=== PATIENT | male | born 1960 | race Caucasian/White ===

== ENCOUNTER → 2017-06-05 | Outpatient (CLI) | payer OTHER ==
[2017-06-05 12:38] LABS: ABSOLUTE BASOPHILS # (AUTO) 0.1 10^3/uL (0.0-0.2); ABSOLUTE EOSINOPHILS # (AUTO) 0.2 10^3/uL (0.0-0.6); ABSOLUTE LYMPHOCYTES (AUTO) 1.7 10^3/uL (0.5-4.7); ABSOLUTE MONOCYTES (AUTO) 0.4 10^3/uL (0.1-1.4); ABSOLUTE NEUT (AUTO) 6.5 10^3/uL (1.7-8.2); BASOPHILS % (AUTO) 0.6 % (0-2); EOSINOPHILS % (AUTO) 2.3 % (0-6); LYMPHOCYTES % (AUTO) 19.4 % (13-45); MEAN CORPUSCULAR HEMOGLOBIN 29.4 pg (27.0-33.4); MEAN CORPUSCULAR VOLUME 87 fl (80-97); MONOCYTES % (AUTO) 4.7 % (3-13); RED BLOOD COUNT 5.78 10^6/uL (4.35-5.55); RED CELL DISTRIBUTION WIDTH 13.6 % (11.5-14.0); WHITE BLOOD COUNT 8.9 10^3/uL (4.0-10.5)
[2017-06-05 13:01] LABS: ALANINE AMINOTRANSFERASE 78 U/L (21-72); ALBUMIN 4.5 g/dL (3.5-5.0); ALKALINE PHOSPHATASE 86 U/L (38-126); ANION GAP 13 (5-19); ASPARTATE AMINO TRANSFERASE 66 U/L (17-59); BILIRUBIN,DIRECT 0.4 mg/dL (0.0-0.4); BLOOD UREA NITROGEN 15 mg/dL (7-20); CALCIUM 10.1 mg/dL (8.4-10.2); CARBON DIOXIDE 25 mmol/L (22-30); CHLORIDE 101 mmol/L (98-107); CHOLESTEROL 222.49 mg/dL (0-200); CREATININE RESULT 0.72 mg/dL (0.52-1.25); Direct HDL 31 mg/dL (>40); GLUCOSE 265 mg/dL (75-110); POTASSIUM 4.7 mmol/L (3.6-5.0); SODIUM 138.5 mmol/L (137-145); TOTAL PROTEIN 7.4 g/dL (6.3-8.2); TRIGLYCERIDES 241 mg/dL (<150)
[2017-06-05 13:13] LABS: DIRECT LDL 170 mg/dL (<100)
[2017-06-05 13:36] LABS: VLDL CHOLESTEROL 48.2 mg/dL (10-31)
[2017-06-06 12:38] LABS: CREATININE URINE 179.5 mg/dL (Not Estab.); MICROALBUMIN URINE 44.5 ug/mL (Not Estab.)
[2017-06-06 15:09] LABS: TESTOSTERONE FREE (DIRECT) 17.1 pg/mL (7.2-24.0)
== END ==
LOC: OD 11:51
PROVIDERS: ATTEND Family Medicine
DX: E78.2 Mixed hyperlipidemia (principal); E29.1 Testicular hypofunction; E11.65 Type 2 diabetes mellitus with hyperglycemia; Z79.899 Other long term (current) drug therapy
CPT/HCPCS: 36415; 80053; 80061; 82043; 82570; 83036; 84153; 84402; 84403; 84443; 85025

== ENCOUNTER → 2017-06-06 | Outpatient (CLI) | payer OTHER ==
--- NOTE | 2017-06-06 19:57 | EKG REPORT ---
SEVERITY:- ABNORMAL ECG - CONSIDER A FLUTTER WITH 2:1 CONDUCTION VS SINUS TACHYCARDIA FIRST DEGREE AV BLOCK LEFT ANTERIOR FASCICULAR BLOCK PROBABLE LEFT VENTRICULAR HYPERTROPHY : Confirmed by: Geovanny Coughlin 06-Jun-2017 19:57:05
== END ==
LOC: OD 11:48
PROVIDERS: ATTEND Family Medicine
DX: R00.0 Tachycardia, unspecified (principal)
CPT/HCPCS: 93005; 93010

== ENCOUNTER → 2017-06-07 | Outpatient (CLI) | payer OTHER ==
[2017-06-07 15:18] LABS: ANION GAP 11 (5-19); BLOOD UREA NITROGEN 14 mg/dL (7-20); CALCIUM 9.9 mg/dL (8.4-10.2); CARBON DIOXIDE 25 mmol/L (22-30); CHLORIDE 102 mmol/L (98-107); GLUCOSE 259 mg/dL (75-110); POTASSIUM 4.3 mmol/L (3.6-5.0); SODIUM 137.8 mmol/L (137-145)
== END ==
LOC: OD 13:46
PROVIDERS: ATTEND Family Medicine
DX: E11.65 Type 2 diabetes mellitus with hyperglycemia (principal)
CPT/HCPCS: 36415; 80048

== ENCOUNTER → 2017-07-05 | Outpatient (CLI) | payer OTHER | LOC: OD 13:13 | PROVIDERS: ATTEND Family Medicine | DX: E11.65 Type 2 diabetes mellitus with hyperglycemia (principal) | CPT/HCPCS: 36415; 83036 ==

== ENCOUNTER 2017-08-07 11:28 | Inpatient (IN) | payer OTHER ==
--- NOTE | 2017-08-07 12:04 | ER Document Report ---
ED Medical Screen (RME) - General Chief Complaint: Shortness Of Breath Stated Complaint: SHORTNESS OF BREATH Time Seen by Provider: 08/07/17 12:02 Notes: Patient complains of severe shortness of breath the last 3 days. He states he has had a stroke in the past. He denies any heart attacks. He states when he lies flat he feels panicky and cannot breathe. He states his sputum has been pink. No history of congestive heart failure. He does have diabetes. He has had no significant chest pain. He has significant dyspnea on exertion and has had cough and congestion. TRAVEL OUTSIDE OF THE [place] IN LAST 30 DAYS: No - Related Data Allergies/Adverse Reactions: No Known Allergies Allergy (Unverified 08/07/17 11:35) Home Medications: Current Home Medications Insulin Glargine,Hum.rec.anlog [Lantus] 20 units SQ HSP PRN 08/07/17 [History] Past Medical History - Past Medical History Cardiac Medical History: Reports: Hx Hypercholesterolemia, Hx Hypertension Endocrine Medical History: Reports: Hx Diabetes Mellitus Type 2 Renal/ Medical History: Denies: Hx Peritoneal Dialysis Physical Exam - Vital signs Vitals: Temp Pulse Resp BP Pulse Ox 98.5 F 139 H 24 H 124/89 H 91 L 08/07/17 11:33 08/07/17 11:33 08/07/17 11:33 08/07/17 11:33 08/07/17 11:33 Course - Vital Signs Vital signs: Temp Pulse Resp BP Pulse Ox 98.5 F 139 H 24 H 124/89 H 91 L 08/07/17 11:33 08/07/17 11:33 08/07/17 11:33 08/07/17 11:33 08/07/17 11:33
--- NOTE | 2017-08-07 12:51 | ER Document Report ---
ED Respiratory Problem - General Chief Complaint: Shortness Of Breath Stated Complaint: SHORTNESS OF BREATH Time Seen by Provider: 08/07/17 12:02 Notes: Patient says that he is having congestion in his chest and lots of phlegm for the past 3 days. He is having a difficult time breathing. He does not have any history of lung diseases, although he does use a sleep apnea device at night , but he has not been using it recently. He started noticing he was running a fast heartbeat back in May and was checked out no reason was given. He had outpatient labs and an EKG done and that EKG in May was read as sinus tachycardia versus atrial flutter with 2-1 block. He says he did not have any follow-up care given for this finding. He feels bloated for the past week. Unable to sleep because he cannot lay down flat during the past week. Denies any chest pain. No history of heart disease or heart failure. Denies any fever. Patient is taking small dose of dextroamphetamine daily, scheduled to be 20 mg a day, patient says is only taking a half a pill. Patient says he was here in May for rapid heartbeat. TRAVEL OUTSIDE OF THE [place] IN LAST 30 DAYS: No - Related Data Allergies/Adverse Reactions: No Known Allergies Allergy (Unverified 08/07/17 11:35) Home Medications: Current Home Medications Dextroamphetamine/Amphetamine [Dextroamp-Amphetamin 20 mg Tab] 20 mg PO DAILY [History] Insulin Glargine,Hum.rec.anlog [Lantus] 20 units SQ HSP PRN 08/07/17 [History] Sildenafil Citrate [Viagra] 50 mg PO DAILY PRN 08/07/17 [History] Past Medical History - Social History Smoking Status: Unknown if Ever Smoked Cigarette use (# per day): No Family History: Reviewed & Not Pertinent Patient has suicidal ideation: No Patient has homicidal ideation: No - Past Medical History Cardiac Medical History: Reports: Hx Hypercholesterolemia, Hx Hypertension Denies: Hx Congestive Heart Failure, Hx Coronary Artery Disease Pulmonary Medical History: Reports: Hx Sleep Apnea Endocrine Medical History: Reports: Hx Diabetes Mellitus Type 1, Hx Diabetes Mellitus Type 2 Psychiatric Medical History: Reports: Hx Attention Deficit Hyperactivity Disorder Review of Systems - Review of Systems Notes: REVIEW OF SYSTEMS: CONSTITUTIONAL : Denies fever. EENT: Denies eye, ear, nose or mouth or throat pain or other symptoms. CARDIOVASCULAR: Denies chest pain. RESPIRATORY: See HPI. GASTROINTESTINAL: Feels his abdomen is "bloated". Denies abdominal pain or nausea, vomiting, or diarrhea. GENITOURINARY: Denies difficulty or painful urinating, urinary frequency, blood in urine. MUSCULOSKELETAL: Denies back or neck pain. Denies joint pain or swelling. SKIN: Denies rash or skin lesions. NEUROLOGICAL: Denies LOC or altered mental status. Denies headache. Denies sensory loss or motor deficits. ALL OTHER SYSTEMS REVIEWED AND NEGATIVE. Physical Exam - Vital signs Vitals: Temp Pulse Resp BP Pulse Ox 98.5 F 139 H 24 H 124/89 H 91 L 08/07/17 11:33 08/07/17 11:33 08/07/17 11:33 08/07/17 11:33 08/07/17 11:33 Interpretation: Tachycardic, Hypoxic - Mild. No: Febrile - Notes Notes: PHYSICAL EXAMINATION: GENERAL: Well-appearing, in no acute distress. Coughing frequently. Afebrile. Tachycardia. HEAD: Atraumatic, normocephalic. EYES: Pupils equal round and reactive to light, extraocular movements intact. ENT: oropharynx clear without exudates. Moist mucous membranes. NECK: Normal range of motion, supple. LUNGS: Breath sounds clear and equal bilaterally. HEART: Regular rate and rhythm without murmurs. Heart rate about 140. ABDOMEN: Soft, nontender. No guarding or rebound. Very distended abdomen and percussion suggest significant ascites present. BACK: No tenderness throughout entire back. EXTREMITIES: Normal range of motion without pain. Trace pitting edema of bilateral pretibial areas. NEUROLOGICAL: Normal speech, normal gait. Normal sensory, motor, and reflex exams. Awake, alert, and oriented x3. Cranial nerves normal. PSYCH: Normal mood, normal affect. SKIN: Warm, dry, no rashes. Course - Re-evaluation Re-evalutation: 08/07/17 15:[address] Coughlin, cardiology confectionery laboratory manager, and he feels that patient may have a sinus tachycardia or possibly atrial flutter with 2-1 block. He recommended trying adenosine, and if not successful, giving Cardizem drip. Patient was given adenosine 6 mg IV and another bolus of 12 mg IV but he did not show any changes on his monitor. He was then started on a drip of Cardizem at 10 mg/h. Also given 0.25 mg of Lanoxin IV. Patient continues to cough frequently. Spoke with Dr. Murrell, who will admit the patient to [facility]. - Vital Signs Vital signs: Temp Pulse Resp BP Pulse Ox 100.5 F H 145 H 35 H 123/73 92 08/07/17 18:15 08/07/17 18:15 08/07/17 18:15 08/07/17 18:15 08/07/17 18:15 - Laboratory Result Diagrams: 08/07/17 12:45 08/07/17 12:45 Laboratory results interpreted by me: 08/07/17 08/07/17 08/07/17 12:45 12:45 12:45 WBC 11.5 H RBC 5.78 H Seg Neutrophils % 85.6 H Lymphocytes % 6.8 L Absolute Neutrophils 9.9 H VBG pH Glucose 157 H Total Bilirubin 1.5 H Direct Bilirubin 0.7 H NT-Pro-B Natriuret Pep 1350 H Urine Glucose (UA) Urine Ketones 08/07/17 08/07/17 12:45 13:55 WBC RBC Seg Neutrophils % Lymphocytes % Absolute Neutrophils VBG pH 7.43 H Glucose Total Bilirubin Direct Bilirubin NT-Pro-B Natriuret Pep Urine Glucose (UA) >=500 H Urine Ketones 20 H - Diagnostic Test Radiology results interpreted by me: 08/07/17 16:00 Chest x-ray shows right pleural effusion with airspace disease, cardiomegaly, without failure. - EKG Interpretation by Ut EKG shows normal: Sinus rhythm Rate: Normal Rhythm: NSR - At 140. Critical Care Note - Critical Care Note Total time excluding time spent on procedures (mins): 75 Discharge - Discharge Clinical Impression: Tachycardia, Pneumonia, Pleural effusion, right, Ascites Condition: Serious Disposition: ADMITTED INPATIENT Admitting Provider: Hospitalist Unit Admitted: [facility]
--- NOTE | 2017-08-07 12:55 | RADIOLOGY REPORT (SQ) ---
EXAM DESCRIPTION: CHEST SINGLE VIEW COMPLETED DATE/TIME: 08/07/2017 12:44 pm REASON FOR STUDY: cough/sob COMPARISON: None. EXAM PARAMETERS: NUMBER OF VIEWS: One view. TECHNIQUE: Single frontal radiographic view of the chest acquired. RADIATION DOSE: NA LIMITATIONS: None. FINDINGS: LUNGS AND PLEURA: There is increased opacification in the right lower lobe. There is a ri ght pleural effusion. There is generalized pulmonary vascular congestion. MEDIASTINUM AND HILAR STRUCTURES: No masses. Contour normal. HEART AND VASCULAR STRUCTURES: Cardiomegaly with pulmonary vascular congestion but no pulmonary edema . BONES: No acute findings. HARDWARE: None in the chest. OTHER: No other significant finding. IMPRESSION: Right pleural effusion with airspace disease in the right lower lobe. Cardiomegaly with out failure. TECHNICAL DOCUMENTATION: JOB ID: [id number] [employer]- All Rights Reserved
[2017-08-07 13:13] LABS: ABSOLUTE BASOPHILS # (AUTO) 0.1 10^3/uL (0.0-0.2); ABSOLUTE EOSINOPHILS # (AUTO) 0.2 10^3/uL (0.0-0.6); ABSOLUTE LYMPHOCYTES (AUTO) 0.8 10^3/uL (0.5-4.7); ABSOLUTE MONOCYTES (AUTO) 0.6 10^3/uL (0.1-1.4); ABSOLUTE NEUT (AUTO) 9.9 10^3/uL (1.7-8.2); BASOPHILS % (AUTO) 0.5 % (0-2); EOSINOPHILS % (AUTO) 1.5 % (0-6); HEMATOCRIT 49.2 % (37.9-51.0); HEMOGLOBIN 16.6 g/dL (13.5-17.0); HGB HCT DIFFERENCE 0.6; LYMPHOCYTES % (AUTO) 6.8 % (13-45); MEAN CORPUSCULAR HEMOGLOBIN 28.8 pg (27.0-33.4); MEAN CORPUSCULAR HGB CONC 33.7 g/dL (32.0-36.0); MEAN CORPUSCULAR VOLUME 85 fl (80-97); MONOCYTES % (AUTO) 5.6 % (3-13); RED BLOOD COUNT 5.78 10^6/uL (4.35-5.55); SEGMENTED NEUTROPHILS % (AUTO) 85.6 % (42-78); WHITE BLOOD COUNT 11.5 10^3/uL (4.0-10.5)
[2017-08-07 13:14] LABS: VENOUS BLOOD BASE EXCESS -0.2 mmol/L; VENOUS BLOOD HCO3 23.7 mmol/L (20-32); VENOUS BLOOD PH 7.43 (7.30-7.42)
[2017-08-07 13:39] LABS: ALANINE AMINOTRANSFERASE 66 U/L (21-72); ALBUMIN 4.3 g/dL (3.5-5.0); ALKALINE PHOSPHATASE 83 U/L (38-126); ANION GAP 15 (5-19); ASPARTATE AMINO TRANSFERASE 45 U/L (17-59); BILIRUBIN,DIRECT 0.7 mg/dL (0.0-0.4); BILIRUBIN,TOTAL 1.5 mg/dL (0.2-1.3); BLOOD UREA NITROGEN 14 mg/dL (7-20); CALCIUM 9.6 mg/dL (8.4-10.2); CARBON DIOXIDE 24 mmol/L (22-30); CHLORIDE 105 mmol/L (98-107); CREATININE RESULT 0.68 mg/dL (0.52-1.25); GLUCOSE 157 mg/dL (75-110); POTASSIUM 4.7 mmol/L (3.6-5.0); SODIUM 143.7 mmol/L (137-145); TOTAL PROTEIN 7.1 g/dL (6.3-8.2)
[2017-08-07 13:55] LABS: TROPONIN I 0.013 ng/mL
[2017-08-07 14:08] LABS: THYROID STIMULATING HORMONE 1.74 uIU/mL (0.47-4.68)
--- NOTE | 2017-08-07 14:12 | EKG REPORT ---
SEVERITY:- ABNORMAL ECG - CONSIDER A FLUTTER WITH 2:1 CONDUCTION SINUS TACHYCARDIA LEFT ANTERIOR FASCICULAR BLOCK BORDERLINE R WAVE PROGRESSION, ANTERIOR LEADS : Confirmed by: Geovanny Coughlin 07-Aug-2017 14:11:38
[2017-08-07 14:34] LABS: APPEARANCE,URINE CLEAR; BILIRUBIN,URINE NEGATIVE (NEGATIVE); GLUCOSE, URINE >=500 mg/dL (NEGATIVE); KETONES,URINE 20 mg/dL (NEGATIVE); LEUKOCYTE ESTERASE,URINE NEGATIVE (NEGATIVE); NITRITE,URINE NEGATIVE (NEGATIVE); PROTEIN,URINE NEGATIVE (NEGATIVE); URINE SPECIFIC GRAVITY 1.041; UROBILINOGEN,URINE NEGATIVE mg/dL (<2.0)
[2017-08-07] MEDS ORDERED: CEFTRIAXONE 1 GM/D5W RTU 1 GM/50 ML RTUPB IV ONE (14:43)
[2017-08-07] MEDS ORDERED: ADENOSINE INJ/PF 6 MG/2 ML SDV IV ONE ×4 (15:07→18:00)
[2017-08-07] MEDS ORDERED: DILTIAZEM HCL/D5W 125 MG/125 ML RTUINJ IV PRN (15:08)
[2017-08-07 15:29] LABS: URINE BARBITURATES SCREEN NEGATIVE; URINE METHADONE SCREEN NEGATIVE; URINE OPIATES LOW NEGATIVE; URINE PHENCYCLIDINE SCREEN NEGATIVE
[2017-08-07] MEDS ORDERED: DILTIAZEM HCL INJ 25 MG/5 ML VIAL ONE (15:31)
[2017-08-07] MEDS ORDERED: DILTIAZEM HCL INJ 25 MG/5 ML VIAL IV ONE ×2 (15:37→21:00)
[2017-08-07] MEDS ORDERED: DIGOXIN INJ 0.5 MG/2 ML AMPULE IV ONE ×2 (15:38→20:30)
[2017-08-07] MEDS ORDERED: METOPROLOL TARTRATE PF/INJ 5 MG/5 ML SDV IV ONE (16:26)
[2017-08-07] MEDS ORDERED: ACETAMINOPHEN 325 MG TABLET PO PRN (16:50)
[2017-08-07] MEDS ORDERED: ALBUTEROL SULFATE 0.083% NEB 2.5 MG/3 ML AMPUL NEB PRN (16:50)
[2017-08-07] MEDS ORDERED: METOPROLOL TARTRATE PF/INJ 5 MG/5 ML SDV IV PRN (17:04)
[2017-08-07] MEDS ORDERED: DEXTROSE 40% GEL 15 GM TUBE PO PRN ×2 (17:09)
[2017-08-07] MEDS ORDERED: DEXTROSE 50%-WATER 25 GM/50 ML DISP.SYRIN IV PRN ×2 (17:09)
[2017-08-07] MEDS ORDERED: GLUCAGON,HUMAN RECOMB 1 MG INJ IM PRN (17:09)
--- NOTE | 2017-08-07 17:29 | PDOC H&P ---
History of Present Illness Admission Date/PCP: 08/07/17 16:26 DONNA HENRIQUEZ MD Patient complains of: Shortness of breath History of Present Illness: EUFEMIA MC is a 57 year old male with a history of diabetes and obesity who presents with a one-week history of shortness of breath. Patient reports over the last week to 10 days he has been feeling short of breath but over the last 2 days is gotten worse. He reports he has had a productive cough of some white sputum. Patient denies any chest pain but has had worsening dyspnea on exertion. He can only walk about 10 steps before becomes dyspneic. He also reports having orthopnea and PND but no lower extremity edema. The patient when he presented was noted to be tachycardic with heart rate of 150. While in the emergency room the patient received adenosine 6 mg, 6 mg, 12 mg with no change in his heart rate or rhythm. Patient then was put on diltiazem in the emergency room with no change in his rhythm. Patient was then given Lopressor IV 5 mg again with no change in the rhythm. The patient's EKG is suggestive of atrial flutter as the cause. The patient does have an elevated BNP consistent with acute congestive heart failure. This may be heart rate related and he does not have any cardiac history previously. The patient does report that he has gained some weight but denies any lower extremity edema. He has had distention in his abdomen. Patient does have obstructive sleep apnea but reports he has not used his CPAP in quite some time. Past Medical History Cardiac Medical History: Reports: Hyperlipidema, Hypertension Denies: Congestive Heart Failure, Coronary Artery Disease Pulmonary Medical History: Reports: Sleep Apnea EENT Medical History: Reports: None Neurological Medical History: Reports: Ischemic CVA Endocrine Medical History: Reports: Diabetes Mellitus Type 2 Renal/ Medical History: Reports: None Malignancy Medical History: Reports: None GI Medical History: Reports: None Musculoskeltal Medical History: Reports: None Psychiatric Medical History: Reports: Attention Deficit Hyperactivity Disorder Traumatic Medical History: Reports: None Hematology: Reports: None Infectious Medical History: Reports: None Past Surgical History Past Surgical History: Reports: Orthopedic Surgery - left achilles Social History Information Source: Patient Smoking Status: Unknown if Ever Smoked Frequency of Alcohol Use: Occasional Hx Recreational Drug Use: No Drugs: None Hx Prescription Drug Abuse: No - Advance Directive Resuscitation Status: Full Code Family History Family History: Father in his 70s from diabetes. Mother age 28 from an unspecified cancer. Parental Family History Reviewed: Yes Children Family History Reviewed: No Sibling(s) Family History Reviewed.: No Medication/Allergy Home Medications: Metformin HCl 1 tab PO BID 03/05/16 Aspirin [Ecotrin 325 mg EC Tablet] 325 mg PO DAILY tabec 03/07/16 Insulin Glargine,Hum.rec.anlog [Lantus] 20 units SQ HSP PRN 08/07/17 Allergies/Adverse Reactions: No Known Allergies Allergy (Unverified 08/07/17 11:35) Review of Systems Constitutional: ABSENT: chills, fever(s), headache(s), weight gain, weight loss Eyes: ABSENT: visual disturbances Ears: ABSENT: hearing changes Cardiovascular: PRESENT: dyspnea on exertion, orthropnea, palpitations. ABSENT : chest pain, edema Respiratory: PRESENT: cough, dyspnea. ABSENT: hemoptysis, sputum Gastrointestinal: ABSENT: abdominal pain, constipation, diarrhea, hematemesis, hematochezia, nausea, vomiting Musculoskeletal: ABSENT: joint swelling Integumentary: ABSENT: rash, wounds Neurological: ABSENT: abnormal gait, abnormal speech, confusion, dizziness, focal weakness, syncope Psychiatric: PRESENT: anxiety. ABSENT: depression Endocrine: ABSENT: cold intolerance, heat intolerance, polydipsia, polyuria Hematologic/Lymphatic: ABSENT: easy bleeding, easy bruising Physical Exam Vital Signs: Temp Pulse Resp BP Pulse Ox 99.7 F 139 H 26 H 112/68 92 08/07/17 14:51 08/07/17 11:33 08/07/17 17:06 08/07/17 17:06 08/07/17 17:06 General appearance: PRESENT: mild distress, obese Head exam: PRESENT: atraumatic, normocephalic Eye exam: PRESENT: conjunctiva pink, EOMI, PERRLA. ABSENT: scleral icterus Ear exam: PRESENT: bleeding Mouth exam: PRESENT: moist, tongue midline Neck exam: PRESENT: JVD. ABSENT: carotid bruit, lymphadenopathy, thyromegaly Respiratory exam: PRESENT: decreased breath sounds - Decreased breath sounds in the bases.. ABSENT: rales, rhonchi, wheezes Cardiovascular exam: PRESENT: tachycardia. ABSENT: diastolic murmur, rubs, systolic murmur GI/Abdominal exam: PRESENT: distended, normal bowel sounds, soft. ABSENT: guarding, mass, organolmegaly, rebound, tenderness Rectal exam: PRESENT: deferred Extremities exam: ABSENT: calf tenderness, clubbing, pedal edema Neurological exam: PRESENT: alert, awake, oriented to person, oriented to place , oriented to time, oriented to situation, CN II-XII grossly intact. ABSENT: motor sensory deficit Psychiatric exam: PRESENT: appropriate affect Skin exam: PRESENT: dry, intact, warm. ABSENT: cyanosis, rash Results Impressions: Chest X-Ray 08/07/17 12:02 IMPRESSION: Right pleural effusion with airspace disease in the right lower lobe. Cardiomegaly without failure. Assessment & Plan - Diagnosis (1) Tachycardia Is this a current diagnosis for this admission?: Yes Plan: The patient has received adenosine, diltiazem, Lopressor with no change in heart rhythm. The EKG shows a heart rate of 150. This is very suggestive that this is atrial flutter. I have discussed the case with Dr. Coughlin of cardiology who recommended starting the patient on amiodarone which we will do. The patient has been using amphetamines for his attention deficit disorder. That may be the causative agent. Patient however does have evidence for congestive heart failure which could possibly be rate related. The patient is not so unstable that he require immediate cardioversion. We will continue the Cardizem until his heart rate starts to slow down with amiodarone. Will check serial cardiac enzymes to make certain he has not had an acute cardiac event. (2) Congestive heart failure Is this a current diagnosis for this admission?: Yes Plan: Patient has no previous history of congestive heart failure. This may all be rate related. We will get an echocardiogram to evaluate his systolic function. Will give IV Lasix. (3) Diabetes mellitus Is this a current diagnosis for this admission?: Yes Plan: Patient reports he has not been taking his insulin. He is just been using metformin. Will cover with sliding scale while hospitalized. (4) Anxiety Is this a current diagnosis for this admission?: Yes (5) Attention deficit disorder Is this a current diagnosis for this admission?: Yes Plan: The patient has been using Adderall as an outpatient. We will hold that now given his tachycardia. (6) Obstructive sleep apnea Is this a current diagnosis for this admission?: Yes Plan: The patient has a CPAP machine at home but has not been using it for several months. This may be contributing some to his heart failure symptoms. (7) Obesity Is this a current diagnosis for this admission?: Yes - Time Time Spent: 50 to 70 Minutes - Inpatient Certification Medical Necessity: Need Close Monitoring Due to Risk of Patient Decompensation - Plan Summary Plan Summary: We will admit to the intensive care unit because of his tachyarrhythmias.
[2017-08-07] MEDS ORDERED: AMIODARONE HCL INJ 150 MG/3 ML VIAL IV ONE ×3 (17:56→20:16)
[2017-08-07 18:17] LABS: CREATINE KINASE MB 1.07 ng/mL (<4.55)
[2017-08-07 18:22] LABS: TROPONIN I < 0.012 ng/mL
[2017-08-07] MEDS ORDERED: AMIODARONE HCL 150 MG in DEXTROSE 5%-WATER 100 ML IV ONE (18:30)
[2017-08-07] MEDS ORDERED: AMIODARONE HCL IV ONE (18:30)
[2017-08-07] MEDS ORDERED: WATER IV ONE (18:30)
[2017-08-07] MEDS ORDERED: DEXTROSE 5% IV ONE (18:30)
[2017-08-07] MEDS ORDERED: ENOXAPARIN SODIUM INJ 40 MG/0.4 ML DISP.SYRIN SUBCUT ONE (18:30)
[2017-08-07] MEDS: DEXTROSE 5%-WATER 500 ML with AMIODARONE HCL 900 MG IV PRN ×2 (18:53)
[2017-08-07] MEDS ORDERED: DIGOXIN INJ 0.5 MG/2 ML AMPULE ONE (20:16)
[2017-08-07] MEDS: DILTIAZEM HCL/D5W 125 MG/125 ML RTUINJ IV PRN (20:55)
[2017-08-07] MEDS: FAMOTIDINE 20 MG TABLET PO SCH (21:51)
[2017-08-07] MEDS: FUROSEMIDE INJ/PF 40 MG/4 ML SDV IV SCH (21:52)
--- NOTE | 2017-08-07 22:01 | PDOC CONSULTATION ---
Consultation Consult Date: 08/07/17 Attending physician:: CHRISTIANNE OCONNOR Consult reason:: A Flutter History of Present Illness Admission Date/PCP: 08/07/17 16:26 DONNA HENRIQUEZ MD Patient complains of: Palpitations and shortness of breath History of Present Illness: EUFEMIA MC is a 57 year old male with a history of diabetes and obesity who presents with a one-week history of shortness of breath. Patient reports over the last week to 10 days he has been feeling short of breath but over the last 2 days is gotten worse. He reports he has had a productive cough of some white sputum. Patient denies any chest pain but has had worsening dyspnea on exertion. He can only walk about 10 steps before becomes dyspneic. He also reports having orthopnea and PND but no lower extremity edema. The patient when he presented was noted to be tachycardic with heart rate of 150. While in the emergency room the patient received adenosine 6 mg, 6 mg, 12 mg with no change in his heart rate or rhythm. Patient then was put on diltiazem in the emergency room with no change in his rhythm. Patient was then given Lopressor IV 5 mg again with no change in the rhythm. The patient's EKG is suggestive of atrial flutter as the cause. The patient does have an elevated BNP consistent with acute congestive heart failure. This may be heart rate related and he does not have any cardiac history previously. The patient does report that he has gained some weight but denies any lower extremity edema. He has had distention in his abdomen. Patient does have obstructive sleep apnea but reports he has not used his CPAP in quite some time. This history was reviewed and confirmed. On repeated questioning, he denied any chest pain. He does have shortness of breath and is noted to have increased respiratory rate. Patient denied any prior history of myocardial infarction, but there is questionable history of congestive heart failure, possible pulmonary hypertension and cardiomyopathy. Patient himself is a poor historian. Patient tells me that he had been having shortness of breath actually since May and had episodes of palpitations since then. Past Medical History Cardiac Medical History: Reports: Hyperlipidema, Hypertension Denies: Congestive Heart Failure, Coronary Artery Disease Pulmonary Medical History: Reports: Sleep Apnea EENT Medical History: Reports: None Neurological Medical History: Reports: Ischemic CVA Endocrine Medical History: Reports: Diabetes Mellitus Type 1, Diabetes Mellitus Type 2 Renal/ Medical History: Reports: None Malignancy Medical History: Reports: None GI Medical History: Reports: None Musculoskeltal Medical History: Reports: None Psychiatric Medical History: Reports: Attention Deficit Hyperactivity Disorder Traumatic Medical History: Reports: None Hematology: Reports: None Infectious Medical History: Reports: None Past Surgical History Past Surgical History: Reports: Orthopedic Surgery - left achilles Social History Information Source: Patient Smoking Status: Unknown if Ever Smoked Frequency of Alcohol Use: Social Hx Recreational Drug Use: No Drugs: None Hx Prescription Drug Abuse: No - Advance Directive Resuscitation Status: Full Code Surrogate healthcare decision maker:: Patient ex-/girlfriend currently the surrogate decision-maker Family History Family History: Hypertension Parental Family History Reviewed: Yes Children Family History Reviewed: Yes Sibling(s) Family History Reviewed.: Yes Medication/Allergy Home Medications: Metformin HCl 1 tab PO BID 03/05/16 Aspirin [Ecotrin 325 mg EC Tablet] 325 mg PO DAILY tabec 03/07/16 Dextroamphetamine/Amphetamine [Dextroamp-Amphetamin 20 mg Tab] 20 mg PO DAILY Insulin Glargine,Hum.rec.anlog [Lantus] 20 units SQ HSP PRN 08/07/17 Sildenafil Citrate [Viagra] 50 mg PO DAILY PRN 08/07/17 Allergies/Adverse Reactions: No Known Allergies Allergy (Unverified 08/07/17 11:35) Review of Systems Review of Systems: Please see history of present illness and past medical history as wall. Constitutional: No fever or chills reported. Head : No recent chronic headaches, recent head injury. Eyes: No recent eye pain, diplopia, redness, discharge, acute visual changes. Ears: No recent chronic ear pain, acute hearing loss, ear discharge. Oral cavity: No recent ulcerations, bleeding, oral cavity discomfort. Neck: No recent acute neck pain reported. Hematologic: No recent easy bruising or bleeding or hematologic malignancy reported. Lymphatic: No recent lymphatic malignancy, chronic lymphadenopathy reported yet Cardiovascular system review: See history of present illness. Respiratory system review: Recent cough with sputum production but no recent hemoptysis, blood clots in the lungs reported. Mild Shortness of breath on exertion. History of palpitations, progressive weight gain and edema. Patient has also noted significant abdominal distention. Gastrointestinal system review: Negative for any recent acute or chronic abdominal pain, hematemesis, melena, recent change in bowel habits. Abdominal distention and weight gain noted. Genitourinary system review: No recent acute or chronic hematuria, flank pain, UTI etc. reported. Skin system review: Negative for any recent abnormal bruising, no rash, no pruritus reported. Neurologic: No prior history of strokes, mini strokes, seizure disorder. Psychologic: No history of major psychosis or major depression reported. Musculoskeletal: Minor aches and pains reported. No acute joint swelling reported. Endocrine: No recent polyuria, polydipsia, recent heat or cold intolerance. Physical Exam Vital Signs: Temp Pulse Resp BP Pulse Ox 98.7 F 137 H 8 L 123/73 96 08/07/17 19:58 08/07/17 20:00 08/07/17 20:00 08/07/17 18:15 08/07/17 20:00 Intake & Output 08/06/17 08/07/17 08/08/17 06:59 06:59 06:59 Output Total 275 Balance -275 Weight 123 kg Exam: GENERAL: well-nourished and in no acute distress. Alert and oriented x3 HEAD: Atraumatic, normocephalic. EYES: Pupils equal round and reactive to light, extraocular movements intact, sclera anicteric, conjunctiva are normal. ENT: TMs normal, nares patent, oropharynx clear without exudates. Moist mucous membranes. No oral ulcerations or bleeding gums noted NECK: supple without lymphadenopathy. Trachea is central. No cervical or axillary lymphadenopathy noted. Carotids are 2+, JVD difficult to evaluate but felt to be increased. LUNGS: Respiration seems nonlabored, no significant accessory muscle action noted. Bibasilar fine crackles noted right more than left with mild bilateral lower lobe dullness. CHEST: Palpation of the chest wall shows no significant chest wall tenderness. No other significant abnormalities noted. HEART: [place] [employer], No PSH, 1/6 TEJ aortic area, 1/6 cardona systolic murmur mitral area, no rubs, no gallops. ABDOMEN: Soft, no significant tenderness appreciated, normoactive bowel sounds. No guarding, no rebound. No rigidity noted . No masses appreciated. Abdomen seems distended due to aerophagia or from ascites. EXTREMITIES: Pedal pulses are 1-2+, no calf tenderness noted. No clubbing or cyanosis. 2 + pedal edema noted NEUROLOGICAL: Focused neurological exam showed no significant neurologic deficit. Normal speech, no focal weakness appreciated. PSYCH: Normal mood, normal affect. Judgment and insight within normal limits. SKIN: No significant ecchymosis, rash, ulcerations or signs of pruritus noted. MUSCULOSKELETAL EXAM: No significant joint swelling noted. Results Laboratory Results: 08/07/17 08/07/17 17:37 17:37 Creatine Kinase 111 CK-MB (CK-2) 1.07 Troponin I < 0.012 EKG Comments: Atrial flutter with rapid ventricular response mostly 2-[address]-T wave changes noted. Impressions: Chest X-Ray 08/07/17 12:02 IMPRESSION: Right pleural effusion with airspace disease in the right lower lobe. Cardiomegaly without failure. Assessment & Plan - Diagnosis (1) Atrial flutter with rapid ventricular response Is this a current diagnosis for this admission?: Yes (2) Congestive heart failure Qualifiers: Congestive heart failure type: combined Congestive heart failure chronicity : acute Qualified Code(s): I50.41 - Acute combined systolic (congestive) and diastolic (congestive) heart failure Is this a current diagnosis for this admission?: Yes (3) Obesity Qualifiers: Obesity classification: adult class 2 (BMI 35 - 39.9) Body mass index: BMI 38.0-38.9 Is this a current diagnosis for this admission?: Yes (4) Obstructive sleep apnea Is this a current diagnosis for this admission?: Yes (5) Pleural effusion, right Is this a current diagnosis for this admission?: Yes (6) Pneumonia Qualifiers: Pneumonia type: due to Haemophilus influenzae Laterality: bilateral Is this a current diagnosis for this admission?: Yes - Notes Notes: Echo in AM Atrial flutter with rapid ventricular response: Patient currently on Cardizem drip. In spite of maximum doses, and intermittent IV beta-rocky, patient has continued to have rapid heart rate response. Amiodarone bolus and drip protocol was therefore started. CHF: This is strongly suspected based on bilateral pleural effusion. A 2D echo has been ordered. Obstructive sleep apnea: Patient not on CPAP therapy at home. Patient to be placed on bilevel therapy because of CHF and acute respiratory failure. Respiratory failure: Patient has rather rapid ventricular respiratory rate. Bilevel therapy will be helpful. Pleural effusion: Possibly parapneumonic possibly related to CHF. Continue to observe. Recommend pulmonary evaluation. Pneumonia: Continue antibiotic therapy. Further management plans after review of 2D echo. Hopefully patient will convert to sinus rhythm. - Time Time Spent: 50 to 70 Minutes - CODE STATUS was discussed, patient remains full code. Surrogate decision-maker unchanged. Multiple medical problems were addressed. More than 50% of the time spent coordinating care, discussing management plans with involved caregivers. Management plans discussed with involved personnels. Medical decision making was of moderate to high complexity , patient's has multiple comorbidities. Medications reviewed and adjusted accordingly: Yes
[2017-08-08 00:05] LABS: CREATINE KINASE MB 1.07 ng/mL (<4.55)
[2017-08-08 00:10] LABS: TROPONIN I < 0.012 ng/mL
[2017-08-08 05:31] LABS: ABSOLUTE BASOPHILS # (AUTO) 0.1 10^3/uL (0.0-0.2); ABSOLUTE EOSINOPHILS # (AUTO) 0.1 10^3/uL (0.0-0.6); ABSOLUTE LYMPHOCYTES (AUTO) 1.2 10^3/uL (0.5-4.7); ABSOLUTE MONOCYTES (AUTO) 0.9 10^3/uL (0.1-1.4); ABSOLUTE NEUT (AUTO) 10.6 10^3/uL (1.7-8.2); BASOPHILS % (AUTO) 0.7 % (0-2); EOSINOPHILS % (AUTO) 0.7 % (0-6); HEMATOCRIT 48.4 % (37.9-51.0); HGB HCT DIFFERENCE -0.4; LYMPHOCYTES % (AUTO) 9.3 % (13-45); MEAN CORPUSCULAR HEMOGLOBIN 28.4 pg (27.0-33.4); MEAN CORPUSCULAR HGB CONC 33.1 g/dL (32.0-36.0); MEAN CORPUSCULAR VOLUME 86 fl (80-97); MONOCYTES % (AUTO) 6.7 % (3-13); RED BLOOD COUNT 5.64 10^6/uL (4.35-5.55); RED CELL DISTRIBUTION WIDTH 13.9 % (11.5-14.0); SEGMENTED NEUTROPHILS % (AUTO) 82.6 % (42-78); WHITE BLOOD COUNT 12.9 10^3/uL (4.0-10.5)
[2017-08-08] MEDS: DILTIAZEM HCL/D5W 125 MG/125 ML RTUINJ IV PRN (05:50)
[2017-08-08 05:54] LABS: ANION GAP 17 (5-19); BLOOD UREA NITROGEN 18 mg/dL (7-20); CARBON DIOXIDE 24 mmol/L (22-30); CHLORIDE 100 mmol/L (98-107); CREATINE KINASE 80 U/L (55-170); CREATININE RESULT 0.79 mg/dL (0.52-1.25); GLUCOSE 154 mg/dL (75-110); POTASSIUM 4.7 mmol/L (3.6-5.0); SODIUM 141.4 mmol/L (137-145)
[2017-08-08 06:05] LABS: CREATINE KINASE MB 0.95 ng/mL (<4.55); TROPONIN I 0.013 ng/mL
[2017-08-08] MEDS: FAMOTIDINE 20 MG TABLET PO SCH ×2 (07:34→21:17)
[2017-08-08] MEDS: INSULIN REG, HUMAN 100 UNIT/ML 3 ML VIAL (PYX) SUBCUT PRN ×3 (08:09→16:57)
[2017-08-08] MEDS: ENOXAPARIN SODIUM INJ 40 MG/0.4 ML DISP.SYRIN SUBCUT SCH (09:14)
[2017-08-08] MEDS: FUROSEMIDE INJ/PF 40 MG/4 ML SDV IV SCH ×2 (09:14→20:08)
--- NOTE | 2017-08-08 09:16 | PDOC PROGRESS REPORT ---
Subjective Progress Note for:: 08/08/17 Subjective:: This is a follow-up visit for tachycardia. Patient states that he still feels short of breath. He denies any current chest pain or sensation of palpitations. He does inform me that he thinks that he is even more swollen today. He has increased abdominal girth and believes that he is gained about 10 pounds over the last 3-4 days. The patient had been on a weight loss program so he had been weighing himself on a near daily basis. Echocardiogram is pending at this time. During my interview Dr. Coughlin was present towards the end. We have discussed a plan of care for today. Physical Exam Vital Signs: Temp Pulse Resp BP Pulse Ox 98.1 F 106 H 31 H 118/68 96 08/08/17 04:00 08/08/17 08:00 08/08/17 07:00 08/08/17 06:49 08/08/17 07:00 Intake & Output 08/07/17 08/08/17 08/09/17 06:59 06:59 06:59 Intake Total 2267 330 Output Total 2550 300 Balance -283 30 Weight 123 kg GENERAL: This is a well-developed well-nourished obese white male resting in a recliner currently in no acute distress. HEART: Tachycardic at the bedside. Increased JVD. No obvious murmurs rubs or gallops. Blood pressure at the bedside is 97 systolic. At the end of the interview recheck is 110 systolic. Telemetry shows flutter and sinus arrhythmia LUNGS: Right lower lobe crackles. Otherwise clear to auscultation bilaterally. The patient is currently expectorating green phlegm at the bedside. He is resting on nasal cannula. ABDOMEN: firm, nontender. Positive distention. Hypoactive bowel sounds. EXTREMETIES: No clubbing or cyanosis. The patient has 1+ pitting edema extending from the feet up into the shins. 1+ peripheral pulses. NEURO: [Awake, alert and oriented 3. Cranial nerves II through XII are grossly intact.] Results Laboratory Results: 08/08/17 05:24 08/08/17 05:24 08/08/17 08/08/17 05:24 05:24 WBC 12.9 H RBC 5.64 H Hgb 16.0 Hct 48.4 MCV 86 MCH 28.4 MCHC 33.1 RDW 13.9 Plt Count 234 Seg Neutrophils % 82.6 H Lymphocytes % 9.3 L Monocytes % 6.7 Eosinophils % 0.7 Basophils % 0.7 Absolute Neutrophils 10.6 H Absolute Lymphocytes 1.2 Absolute Monocytes 0.9 Absolute Eosinophils 0.1 Absolute Basophils 0.1 Sodium 141.4 Potassium 4.7 Chloride 100 Carbon Dioxide 24 Anion Gap 17 BUN 18 Creatinine 0.79 Est GFR ( Amer) > 60 Est GFR (Non-Af Amer) > 60 Glucose 154 H Calcium 9.0 08/07/17 08/07/17 08/07/17 17:37 17:37 23:14 Creatine Kinase 111 117 CK-MB (CK-2) 1.07 Troponin I < 0.012 08/07/17 08/08/17 08/08/17 23:14 05:24 05:24 Creatine Kinase 80 CK-MB (CK-2) 1.07 0.95 Troponin I < 0.012 0.013 Impressions: Chest X-Ray 08/07/17 12:02 IMPRESSION: Right pleural effusion with airspace disease in the right lower lobe. Cardiomegaly without failure. Assessment & Plan - Diagnosis (1) Acute respiratory failure Plan: Secondary to his tachycardia and what is likely underlying combined systolic and diastolic heart failure. Continue oxygen by nasal cannula. the patient is currently saturating well. (2) Tachycardia Is this a current diagnosis for this admission?: Yes Plan: Patient seems to have some sort of sinus arrhythmia that is intermittent with an underlying A flutter. He does not currently complain of any chest pain. He is currently on Cardizem at a lower rate than yesterday. He is also on amiodarone and received a dose of dig yesterday as well. Currently his heart rate is in the 130s. Dr. Coughlin has recommending going back up on the Cardizem drip and giving an additional dose 25 mcg of digoxin. We will try these interventions and see if they help. Apparently his rate was down in the 110s yesterday with the increased dose of Cardizem. The patient ultimately may need EP cardiology evaluation. For now I am going implement the interventions recommended by cardiology and obtain an EKG. Stat echocardiogram has been ordered. Continue Lasix at 40 twice daily IV. As per cardiology we will continue with Lovenox and aspirin. Possible etiologies for his underlying tachycardia could include his use of amphetamines for treatment of ADD versus underlying infection or precipitated by underlying heart failure. (3) Congestive heart failure Qualifiers: Congestive heart failure type: unspecified congestive heart failure type Is this a current diagnosis for this admission?: Yes Plan: Suspect combined diastolic and systolic heart failure. I suspect that the patient's underlying symptoms of edema are secondary to his prolonged elevated heart rate. The patient states that he sought medical care for an elevated heart rate found on routine physical back in May. He represented the next morning for an EKG and notes that his heart rate was in the 130s then. He states that he assumed everything was doing well since he did not hear back from his primary care physician. Currently echocardiogram is pending. Continue with Lasix, Cardizem, amiodarone and digoxin. If his blood pressure can sustain itself with these interventions we can certainly add on metoprolol if necessary. (4) Diabetes mellitus Qualifiers: Diabetes mellitus type: type 2 Diabetes mellitus complication status: without complication Is this a current diagnosis for this admission?: Yes Plan: Blood sugars are in the 150s which is reasonable for now. Continue sliding scale insulin and hypoglycemic protocol. (5) Obstructive sleep apnea Is this a current diagnosis for this admission?: Yes (6) Attention deficit disorder Is this a current diagnosis for this admission?: Yes Plan: Discontinue amphetamine secondary to heart rate. (7) Anxiety Is this a current diagnosis for this admission?: Yes (8) Obesity Qualifiers: Obesity classification: adult class 2 (BMI 35 - 39.9) Body mass index: BMI 38.0-38.9 Is this a current diagnosis for this admission?: Yes Plan: Although I suspect the patient truly is obese, some of his weight is secondary to underlying edema and fluid retention. Continue weight loss through dietary changes and exercise. (9) Leukocytosis Plan: The patient has a neutrophilia on labs with an overall elevated white blood cell count of 12.9. This is increased from yesterday and occurring in the setting of phlegm production and airspace disease seen on chest x-ray on admission. Repeat chest x-ray today PA and lateral. Patient may have an underlying pneumonia in which case we will need to begin antibiotics. An occult infection certainly could be the reason for his tachycardia. Sputum culture has already been sent. Urinalysis and blood cultures are pending but negative to date. The patient did get 1 dose of Rocephin down in the ED. at this point nothing has been continued. Continue Rocephin with doxycycline. - Time Time Spent with patient: 25-34 minutes - Inpatient Certification Medical Necessity: Need Close Monitoring Due to Risk of Patient Decompensation
--- NOTE | 2017-08-08 09:35 | EKG REPORT ---
SEVERITY:- ABNORMAL ECG - CONSIDER A FLUTTER WITH 2:1 CONDUCTION LAD, CONSIDER LAFB OR INFERIOR INFARCT NONSPECIFIC T ABNORMALITIES, ANT-LAT LEADS : Confirmed by: Geovanny Coughlin 08-Aug-2017 09:34:51
[2017-08-08] MEDS ORDERED: DIGOXIN INJ 0.5 MG/2 ML AMPULE IV ONE (10:00)
[2017-08-08] MEDS ORDERED: ASPIRIN 325 MG TABLET, ENT COATED PO SCH (10:00)
[2017-08-08] MEDS: DOXYCYCLINE HYCLATE 100 MG TABLET PO SCH ×2 (10:14→21:17)
[2017-08-08] MEDS ORDERED: METOPROLOL SUCCINATE 50 MG TAB.SR.24H PO ONE ×2 (10:30→17:00)
[2017-08-08] MEDS ORDERED: DILTIAZEM HCL INJ 25 MG/5 ML VIAL IV ONE (10:30)
[2017-08-08] MEDS: METOPROLOL TARTRATE PF/INJ 5 MG/5 ML SDV IV SCH ×3 (11:23→11:56)
[2017-08-08] MEDS: CEFTRIAXONE 1 GM/D5W RTU 1 GM/50 ML RTUPB IV SCH (11:24)
--- NOTE | 2017-08-08 12:13 | RADIOLOGY REPORT (SQ) ---
EXAM DESCRIPTION: CHEST PA/LAT COMPLETED DATE/TIME: 08/08/2017 11:00 am REASON FOR STUDY: sob, ?pneumonia COMPARISON: February 2016 EXAM PARAMETERS: NUMBER OF VIEWS: two views TECHNIQUE: Digital Frontal and Lateral radiographic views of the chest acquired. RADIATION DOSE: NA LIMITATIONS: none FINDINGS: LUNGS AND PLEURA: There is blunting of both costophrenic angles right greater than left co nsistent with small bilateral pleural effusions and I cannot exclude associated atelectasis or infilt rate in the lung bases especially on the right. Remaining lung soto are clear. MEDIASTINUM AND HILAR STRUCTURES: No masses or contour abnormalities. HEART AND VASCULAR STRUCTURES: Heart normal size. No evidence for failure. BONES: No acute findings. HARDWARE: None in the chest. OTHER: No other significant finding. IMPRESSION: Bibasilar densities as noted above TECHNICAL DOCUMENTATION: JOB ID: [id number] [employer]- All Rights Reserved
[2017-08-08] MEDS ORDERED: POLYETHYLENE GLYCOL 3350 POWDER 17 GM/1 PACKET PO PRN (13:20)
[2017-08-08] MEDS ORDERED: METOPROLOL TARTRATE PF/INJ 5 MG/5 ML SDV IV SCH (15:00)
[2017-08-08] MEDS ORDERED: METOPROLOL TARTRATE PF/INJ 5 MG/5 ML SDV IV ONE (17:00)
[2017-08-08] MEDS ORDERED: ALPRAZOLAM 0.25 MG TABLET PO PRN (18:38)
[2017-08-08] MEDS: METOPROLOL TARTRATE PF/INJ 5 MG/5 ML SDV IV PRN ×2 (18:50→20:00)
[2017-08-08] MEDS ORDERED: METOPROLOL TARTRATE 50 MG TABLET ONE (19:28)
[2017-08-08] MEDS ORDERED: LACTULOSE SYRUP 20 GM/30 ML UDCUP PO ONE (20:00)
[2017-08-08] MEDS ORDERED: RANOLAZINE 500 MG TAB.SR.12H PO ONE (20:00)
--- NOTE | 2017-08-08 20:00 | XCELERA REPORT ---
[address] [address] Transthoracic Echocardiogram Report Name: EUFEMIA MC Age: 57 yrs Gender: Male : 1960 Patient Status: In[facility] Study Date: 08/08/2017 10:39 AM Height: 69 in Weight: 265 lb BSA: 2.3 m2 Procedure: A complete two-dimensional transthoracic echocardiogram was performed (2D, M-mode, spectral and color flow Doppler). The study was technically difficult with many images being suboptimal in quality. Reason For Study: chf Ordering Physician: CHRISTIANNE OCONNOR Performed By: Chitra Hatch Interpretation Summary LV EF is 35% Left ventricular systolic function is moderate to severely reduced. There is mild concentric left ventricular hypertrophy. The left ventricle is mildly dilated. Doppler measurements suggest pseudonormalized left ventricular relaxation, which is associated with grade II/IV or mild to moderate diastolic dysfunction There is moderate to severe global hypokinesis of the left ventricle. The right ventricular systolic function is normal. The right atrium is mildly dilated. The left atrium is mildly dilated. There is a mild to moderate amount of mitral regurgitation There is no mitral valve stenosis. There is no aortic valve stenosis No aortic regurgitation is present. There is a trace to mild amount of tricuspid regurgitation Right ventricular systolic pressure is estimated to be elevated at 40- 50mmHg. There is mild to moderate pulmonary hypertension by echo The aortic root is not well visualized but is probably normal size. The inferior vena cava appeared normal and decreased < 50% with respiration (RAP 10-15 mmHg) There is no pericardial effusion. MMode/2D Measurements & Calculations RVDd: 3.1 cm LVIDd: 6.1 cm FS: 14.1 % Ao root diam: 2.5 cm IVSd: 0.99 cm LVIDs: 5.3 cm EDV(Teich): 188.8 ml LVPWd: 1.0 cm ESV(Teich): 133.0 ml Ao root area: 5.1 cm2 EF(Teich): 29.5 % Doppler Measurements & Calculations Ao V2 max: LV V1 max PG: MR max macy: PA V2 max: 107.7 cm/sec 5.4 mmHg 423.3 cm/sec 73.8 cm/sec Ao max P.6 mmHgLV V1 max: MR max PG: PA max P.4 cm/sec 71.7 mmHg 2.2 mmHg TR max macy: 242.4 cm/sec TR max P.9 mmHg Left Ventricle The left ventricle is mildly dilated. There is mild concentric left ventricular hypertrophy. Left ventricular systolic function is moderate to severely reduced. LV EF is 35%. Doppler measurements suggest pseudonormalized left ventricular relaxation, which is associated with grade II/IV or mild to moderate diastolic dysfunction. There is moderate to severe global hypokinesis of the left ventricle. Right Ventricle The right ventricle is normal in size, thickness and function. There is normal right ventricular wall thickness. The right ventricular systolic function is normal. Atria The right atrium is mildly dilated. The left atrium is mildly dilated. Interarterial septum not well visualized and not well dopplered. Cannot comment on ASD/PFO presence. Mitral Valve The mitral valve leaflets are sclerotic, but show no functional abnormalities. There is no mitral valve stenosis. There is a mild to moderate amount of mitral regurgitation. Aortic Valve The aortic valve is grossly normal. There is no aortic valve stenosis. No aortic regurgitation is present. Tricuspid Valve The tricuspid valve is not well visualized, but is grossly normal. There is no tricuspid stenosis. There is a trace to mild amount of tricuspid regurgitation. Right ventricular systolic pressure is estimated to be elevated at 40-50mmHg. There is mild to moderate pulmonary hypertension by echo. Pulmonic Valve The pulmonic valve is not well visualized. Great Vessels The aortic root is not well visualized but is probably normal size. The inferior vena cava appeared normal and decreased < 50% with respiration (RAP 10-15 mmHg). Effusions There is no pericardial effusion. : CHRISTIANNE OCONNOR > Geovanny Coughlin
[2017-08-08] MEDS: DEXTROSE 5%-WATER 500 ML with AMIODARONE HCL 900 MG IV PRN ×2 (20:02)
--- NOTE | 2017-08-08 20:38 | Progress Note ---
Provider Note Provider Note: Called by nursing staff for ongoing tachycardia. Patient found to be 130's and above despite interventions. Patient complains of shortness of breath. Discussed patient with cardiology who reveals patient has an approximate EF 35% . He agrees Esmolol is acceptable for increasing tachycardia. Patient in aflutter with 2:1 block. VSS [id number], BP: 107/60 Gen: A+Ox3, moderate respiratory distress Chest: coarse bilaterally CV: tachycardia, RRR Ext: evidence of chronic venous stasis, 2+ BLE edema Neuro: grossly intact Psych: normal mood and affect A/P: 1. Acute on chronic combined systolic and diastolic CHF: agree with lasix, amiodarone, digoxin, and will initiate esmolol ggt. Continue to follow.
[2017-08-08] MEDS ORDERED: ESMOLOL HCL/SOD CL 2,500 MG/250 ML RTUINJ IV ONE (20:44)
--- NOTE | 2017-08-08 21:55 | PDOC PROGRESS REPORT ---
Subjective Progress Note for:: 08/08/17 Subjective:: About the same. Still having high heart rate and remains in atrial flutter with variable conduction. During the night his heart rate was slower but in the morning it has jumped back up. Physical Exam Vital Signs: Temp Pulse Resp BP Pulse Ox 99.0 F 128 H 21 H 112/83 92 08/08/17 20:00 08/08/17 20:00 08/08/17 20:00 08/08/17 20:00 08/08/17 20:00 Intake & Output 08/07/17 08/08/17 08/09/17 06:59 06:59 06:59 Intake Total 2267 2028 Output Total 2550 2650 Balance -283 -622 Weight 123 kg 122 kg Exam: GENERAL: well-nourished and in no acute distress. Alert and oriented x3 HEAD: Atraumatic, normocephalic. EYES: Pupils equal round and reactive to light, extraocular movements intact, sclera anicteric, conjunctiva are normal. ENT: TMs normal, nares patent, oropharynx clear without exudates. Moist mucous membranes. No oral ulcerations or bleeding gums noted NECK: supple without lymphadenopathy. Trachea is central. No cervical or axillary lymphadenopathy noted. Carotids are 2+, JVD difficult to evaluate but possibly increased LUNGS: Respiration seems nonlabored, no significant accessory muscle action noted. Bibasilar fine crackles, right more than left and bilateral basal dullness noted on percussion. CHEST: Palpation of the chest wall shows no significant chest wall tenderness. No other significant abnormalities noted. 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 ABDOMEN: Soft, no significant tenderness appreciated, normoactive bowel sounds. No guarding, no rebound. No rigidity noted . No masses appreciated. EXTREMITIES: Pedal pulses are 1-2+, no calf tenderness noted. No clubbing or cyanosis. 1-2 + pedal edema noted NEUROLOGICAL: Focused neurological exam showed no significant neurologic deficit. Normal speech, no focal weakness appreciated. PSYCH: Normal mood, normal affect. Judgment and insight within normal limits. SKIN: No significant ecchymosis, rash, ulcerations or signs of pruritus noted. MUSCULOSKELETAL EXAM: No significant joint swelling noted. Results Laboratory Results: 08/08/17 05:24 08/08/17 05:24 08/08/17 08/08/17 05:24 05:24 WBC 12.9 H RBC 5.64 H Hgb 16.0 Hct 48.4 MCV 86 MCH 28.4 MCHC 33.1 RDW 13.9 Plt Count 234 Seg Neutrophils % 82.6 H Lymphocytes % 9.3 L Monocytes % 6.7 Eosinophils % 0.7 Basophils % 0.7 Absolute Neutrophils 10.6 H Absolute Lymphocytes 1.2 Absolute Monocytes 0.9 Absolute Eosinophils 0.1 Absolute Basophils 0.1 Sodium 141.4 Potassium 4.7 Chloride 100 Carbon Dioxide 24 Anion Gap 17 BUN 18 Creatinine 0.79 Est GFR ( Amer) > 60 Est GFR (Non-Af Amer) > 60 Glucose 154 H Calcium 9.0 08/07/17 08/07/17 08/07/17 17:37 17:37 23:14 Creatine Kinase 111 117 CK-MB (CK-2) 1.07 Troponin I < 0.012 NT-Pro-B Natriuret Pep 08/07/17 08/08/17 08/08/17 23:14 05:24 05:24 Creatine Kinase 80 CK-MB (CK-2) 1.07 0.95 Troponin I < 0.012 0.013 NT-Pro-B Natriuret Pep 08/08/17 19:51 Creatine Kinase CK-MB (CK-2) Troponin I NT-Pro-B Natriuret Pep 1070 H EKG Comments: Telemetry strips shows patient having atrial flutter with predominantly 2-1 conduction but heart rate slightly slower than yesterday. Impressions: Chest X-Ray 08/08/17 00:00 IMPRESSION: Bibasilar densities as noted above Assessment & Plan - Notes Notes: Patient to continue on amiodarone drip. Patient given additional IV digoxin 0.25. Patient given metoprolol 5 mg IV every 5 minutes 2 and then every hour for heart rate over 120. Patient also received metoprolol succinate 50 mg p.o. in the morning. Patient was again seen in the evening. Patient heart rate remained high in the high 120s. Patient was given additional metoprolol succinate 50 mg. Have started patient on Ranexa 1000 mg p.o. twice daily. This may help convert patient to sinus rhythm. Have ordered evening labs. Agree with IV Lasix therapy as patient seems volume overloaded. He may have in addition ascites. Continue with intermittent bilevel positive pressure ventilation therapy. - Time Time with patient: Greater than 35 minutes - Patient was seen multiple times in significant time spent in managing this patient. Medications reviewed and adjusted accordingly: Yes
[2017-08-09] MEDS: ESMOLOL HCL/SOD CL 2,500 MG/250 ML RTUINJ IV PRN ×3 (00:01→05:55)
[2017-08-09] MEDS: ONDANSETRON 4 MG TAB.RAPDIS PO PRN ×2 (01:42→15:39)
[2017-08-09 04:36] LABS: ABSOLUTE EOSINOPHILS # (AUTO) 0.1 10^3/uL (0.0-0.6); ABSOLUTE LYMPHOCYTES (AUTO) 0.7 10^3/uL (0.5-4.7); ABSOLUTE MONOCYTES (AUTO) 0.6 10^3/uL (0.1-1.4); ABSOLUTE NEUT (AUTO) 12.7 10^3/uL (1.7-8.2); BASOPHILS % (AUTO) 0.2 % (0-2); EOSINOPHILS % (AUTO) 0.7 % (0-6); HEMATOCRIT 48.6 % (37.9-51.0); HEMOGLOBIN 15.9 g/dL (13.5-17.0); HGB HCT DIFFERENCE -0.9; LYMPHOCYTES % (AUTO) 5.2 % (13-45); MEAN CORPUSCULAR HEMOGLOBIN 27.9 pg (27.0-33.4); MEAN CORPUSCULAR HGB CONC 32.8 g/dL (32.0-36.0); MEAN CORPUSCULAR VOLUME 85 fl (80-97); MONOCYTES % (AUTO) 4.5 % (3-13); RED BLOOD COUNT 5.71 10^6/uL (4.35-5.55); SEGMENTED NEUTROPHILS % (AUTO) 89.4 % (42-78); WHITE BLOOD COUNT 14.2 10^3/uL (4.0-10.5)
[2017-08-09 04:37] LABS: ANION GAP 15 (5-19); BLOOD UREA NITROGEN 30 mg/dL (7-20); CALCIUM 8.8 mg/dL (8.4-10.2); CARBON DIOXIDE 21 mmol/L (22-30); CHLORIDE 100 mmol/L (98-107); CREATININE RESULT 0.75 mg/dL (0.52-1.25); DIGOXIN 0.84 ng/mL (0.8-2.0); GLUCOSE 214 mg/dL (75-110); MAGNESIUM 2.3 mg/dL (1.6-2.3); POTASSIUM 4.9 mmol/L (3.6-5.0); SODIUM 136.3 mmol/L (137-145)
[2017-08-09] MEDS: FAMOTIDINE 20 MG TABLET PO SCH (07:54)
[2017-08-09] MEDS: INSULIN REG, HUMAN 100 UNIT/ML 3 ML VIAL (PYX) SUBCUT PRN ×2 (07:54→11:35)
--- NOTE | 2017-08-09 08:39 | PDOC PROGRESS REPORT ---
Subjective Progress Note for:: 08/09/17 Subjective:: This is a follow-up visit for tachycardia. The patient states that he actually feels a little bit better today. His heart rate overnight remained elevated and he was changed from metoprolol to an esmolol drip. His heart rates have been around 110 consistently. However, with movement he goes back up to the 120s or 30s. Physical Exam Vital Signs: Temp Pulse Resp BP Pulse Ox 98.1 F 128 H 34 H 97/79 L 97 08/09/17 04:00 08/08/17 20:00 08/09/17 06:30 08/09/17 06:30 08/09/17 06:30 Intake & Output 08/08/17 08/09/17 08/10/17 06:59 06:59 06:59 Intake Total 2267 3333 Output Total 2550 3225 Balance -283 108 Weight 123 kg 120 kg GENERAL: This is a well-developed well-nourished obese white male resting in a recliner currently in no acute distress. HEART: Tachycardic at the bedside. No obvious murmurs rubs or gallops. Blood pressure at the bedside is 84 systolic. Telemetry shows fsinus tach LUNGS: Diminished at the bases bilaterally with equal rise and fall of the chest. He is resting on nasal cannula. ABDOMEN: firm, nontender. Less distention. Hypoactive bowel sounds. EXTREMETIES: No clubbing or cyanosis. The patient has trace edema on the right. Trace to 1+ on the left extending from the feet up into the shins. 1+ peripheral pulses. NEURO: Awake, alert and oriented 3. Cranial nerves II through XII are grossly intact. Results Laboratory Results: 08/09/17 04:03 08/09/17 04:03 08/09/17 08/09/17 04:03 04:03 WBC 14.2 H RBC 5.71 H Hgb 15.9 Hct 48.6 MCV 85 MCH 27.9 MCHC 32.8 RDW 14.0 Plt Count 247 Seg Neutrophils % 89.4 H Lymphocytes % 5.2 L Monocytes % 4.5 Eosinophils % 0.7 Basophils % 0.2 Absolute Neutrophils 12.7 H Absolute Lymphocytes 0.7 Absolute Monocytes 0.6 Absolute Eosinophils 0.1 Absolute Basophils 0.0 Sodium 136.3 L Potassium 4.9 Chloride 100 Carbon Dioxide 21 L Anion Gap 15 BUN 30 H Creatinine 0.75 Est GFR ( Amer) > 60 Est GFR (Non-Af Amer) > 60 Glucose 214 H Calcium 8.8 Magnesium 2.3 08/07/17 08/07/17 08/07/17 17:37 17:37 23:14 Creatine Kinase 111 117 CK-MB (CK-2) 1.07 Troponin I < 0.012 NT-Pro-B Natriuret Pep 08/07/17 08/08/17 08/08/17 23:14 05:24 05:24 Creatine Kinase 80 CK-MB (CK-2) 1.07 0.95 Troponin I < 0.012 0.013 NT-Pro-B Natriuret Pep 08/08/17 08/09/17 19:51 04:03 Creatine Kinase CK-MB (CK-2) Troponin I NT-Pro-B Natriuret Pep 1070 H 1540 H Impressions: Chest X-Ray 08/08/17 00:00 IMPRESSION: Bibasilar densities as noted above Assessment & Plan - Diagnosis (1) Acute respiratory failure Plan: Secondary to his tachycardia and what is likely underlying combined systolic and diastolic heart failure. Continue oxygen by nasal cannula. the patient is currently saturating well. (2) Tachycardia Is this a current diagnosis for this admission?: Yes Plan: Patient seems to have some sort of sinus arrhythmia that is intermittent with an underlying A flutter. He does not currently complain of any chest pain. The Cardizem drip has been stopped and the patient was for short time on metoprolol IV q. one hour. He is currently on an esmolol drip along with the amiodarone drip. Currently his heart rate is in the 110s. The patient ultimately may need EP cardiology evaluation. Echocardiogram shows an EF of 35% -40%. continue Lasix at 40 twice daily IV. The patient only put out a net negative of just over 200 mL of fluid. He consumed 1700 mL of fluid orally. He received 500 mL of IV fluids through the various drips. Therefore, I am going to institute fluid restriction of 1000 mL orally. As per cardiology we will continue with Lovenox and aspirin. Possible etiologies for his underlying tachycardia include his use of amphetamines for treatment of ADD versus underlying infection or precipitated by underlying heart failure. (3) Congestive heart failure Qualifiers: Congestive heart failure type: combined Congestive heart failure chronicity : acute Qualified Code(s): I50.41 - Acute combined systolic (congestive) and diastolic (congestive) heart failure Is this a current diagnosis for this admission?: Yes Plan: Combined diastolic and systolic heart failure. As per my conversation with Dr. Coughlin the patient's EF is closer to 40%. However, it is reported to be between 35 and 40%. I suspect that the patient's underlying symptoms of edema are secondary to his prolonged elevated heart rate. Continue with Lasix, esmolol , amiodarone and digoxin. Consider transferral to [facility] for EP evaluation. The patient has been in this heart rate range since May. Will obtain office visit records and office EKG to verify this. [place] 1000 mL oral fluid restriction. (4) Diabetes mellitus Qualifiers: Diabetes mellitus type: type 2 Diabetes mellitus complication status: without complication Is this a current diagnosis for this admission?: Yes Plan: Blood sugars are reasonable for now. Continue sliding scale insulin and hypoglycemic protocol. (5) Obstructive sleep apnea Is this a current diagnosis for this admission?: Yes (6) Attention deficit disorder Is this a current diagnosis for this admission?: Yes Plan: Discontinue amphetamine secondary to heart rate. (7) Anxiety Is this a current diagnosis for this admission?: Yes Plan: Continue as needed Xanax. His anxiety is precipitated by his heart rate and associated shortness of breath. (8) Obesity Qualifiers: Obesity classification: adult class 2 (BMI 35 - 39.9) Body mass index: BMI 38.0-38.9 Is this a current diagnosis for this admission?: Yes Plan: Although I suspect the patient truly is obese, some of his weight is secondary to underlying edema and fluid retention. Continue weight loss through dietary changes and exercise. (9) Pneumonia Qualifiers: Pneumonia type: due to Haemophilus influenzae Laterality: bilateral Plan: Haemophilus influenza pneumonia. Continue Rocephin. Continue to monitor white count. - Time Time Spent with patient: 25-34 minutes
--- NOTE | 2017-08-09 09:29 | EKG REPORT ---
SEVERITY:- ABNORMAL ECG - SINUS TACHYCARDIA, can not r/o SLOW A. FLUTTER WITH 2;1 CONDUCTION LEFT ANTERIOR FASCICULAR BLOCK PROBABLE LVH WITH SECONDARY REPOL ABNRM : Confirmed by: Geovanny Coughlin 09-Aug-2017 09:29:21
[2017-08-09] MEDS ORDERED: DIGOXIN INJ 0.5 MG/2 ML AMPULE IV ONE (09:40)
[2017-08-09] MEDS: DOXYCYCLINE HYCLATE 100 MG TABLET PO SCH (09:42)
[2017-08-09] MEDS: ENOXAPARIN SODIUM INJ 40 MG/0.4 ML DISP.SYRIN SUBCUT SCH (09:42)
[2017-08-09] MEDS ORDERED: RANOLAZINE 500 MG TAB.SR.12H PO SCH (10:00)
[2017-08-09] MEDS ORDERED: ASPIRIN 81 MG TABLET, CHEWABLE PO SCH (10:00)
[2017-08-09] MEDS ORDERED: LACTULOSE SYRUP 20 GM/30 ML UDCUP PO SCH (10:00)
[2017-08-09] MEDS ORDERED: SPIRONOLACTONE 25 MG TABLET PO SCH (10:00)
[2017-08-09] MEDS ORDERED: METOPROLOL SUCCINATE 50 MG TAB.SR.24H PO SCH (10:00)
[2017-08-09] MEDS ORDERED: METOPROLOL SUCCINATE 25 MG TAB.SR.24H PO SCH (10:00)
[2017-08-09] MEDS: FUROSEMIDE INJ/PF 40 MG/4 ML SDV IV SCH (11:11)
[2017-08-09] MEDS: CEFTRIAXONE 1 GM/D5W RTU 1 GM/50 ML RTUPB IV SCH (12:01)
[2017-08-09 17:14] VITALS: BP 120/92
--- NOTE | 2017-08-09 21:21 | PDOC PROGRESS REPORT ---
Subjective Progress Note for:: 08/09/17 Subjective:: About the same. Still having high heart rate and remains in atrial flutter with variable conduction. Continues with rapid heartbeat predominantly from 2- 1 conduction. Flutter rate has slowed down to some extent. Patient actually claims to be feeling better. Patient wants to be transferred to [facility]. Have discussed this with hospitalist and she is going to try to arrange this. Physical Exam Vital Signs: Temp Pulse Resp BP Pulse Ox 97.6 F 115 H 28 H 120/92 H 94 08/09/17 14:00 08/09/17 09:58 08/09/17 16:10 08/09/17 16:10 08/09/17 16:10 Intake & Output 08/08/17 08/09/17 08/10/17 06:59 06:59 06:59 Intake Total 2267 3333 330 Output Total 2550 3225 700 Balance -283 108 -370 Weight 123 kg 120 kg Exam: GENERAL: well-nourished and in no acute distress. Alert and oriented x3 HEAD: Atraumatic, normocephalic. EYES: Pupils equal round and reactive to light, extraocular movements intact, sclera anicteric, conjunctiva are normal. ENT: TMs normal, nares patent, oropharynx clear without exudates. Moist mucous membranes. No oral ulcerations or bleeding gums noted NECK: supple without lymphadenopathy. Trachea is central. No cervical or axillary lymphadenopathy noted. Carotids are 2+, JVD probably not distended. LUNGS: Respiration seems nonlabored, no significant accessory muscle action noted. Bibasilar fine crackles noted. CHEST: Palpation of the chest wall shows no significant chest wall tenderness. No other significant abnormalities noted. 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 ABDOMEN: Soft, no significant tenderness appreciated, normoactive bowel sounds. No guarding, no rebound. No rigidity noted . No masses appreciated. Abdominal distention seems reduced. EXTREMITIES: Pedal pulses are 1-2+, no calf tenderness noted. No clubbing or cyanosis. 1+ pedal edema noted NEUROLOGICAL: Focused neurological exam showed no significant neurologic deficit. Normal speech, no focal weakness appreciated. PSYCH: Normal mood, normal affect. Judgment and insight within normal limits. SKIN: No significant ecchymosis, rash, ulcerations or signs of pruritus noted. MUSCULOSKELETAL EXAM: No significant joint swelling noted. Results Laboratory Results: 08/09/17 04:03 08/09/17 04:03 08/09/17 08/09/17 04:03 04:03 WBC 14.2 H RBC 5.71 H Hgb 15.9 Hct 48.6 MCV 85 MCH 27.9 MCHC 32.8 RDW 14.0 Plt Count 247 Seg Neutrophils % 89.4 H Lymphocytes % 5.2 L Monocytes % 4.5 Eosinophils % 0.7 Basophils % 0.2 Absolute Neutrophils 12.7 H Absolute Lymphocytes 0.7 Absolute Monocytes 0.6 Absolute Eosinophils 0.1 Absolute Basophils 0.0 Sodium 136.3 L Potassium 4.9 Chloride 100 Carbon Dioxide 21 L Anion Gap 15 BUN 30 H Creatinine 0.75 Est GFR ( Amer) > 60 Est GFR (Non-Af Amer) > 60 Glucose 214 H Calcium 8.8 Magnesium 2.3 08/07/17 08/07/17 08/07/17 17:37 17:37 23:14 Creatine Kinase 111 117 CK-MB (CK-2) 1.07 Troponin I < 0.012 NT-Pro-B Natriuret Pep 08/07/17 08/08/17 08/08/17 23:14 05:24 05:24 Creatine Kinase 80 CK-MB (CK-2) 1.07 0.95 Troponin I < 0.012 0.013 NT-Pro-B Natriuret Pep 08/08/17 08/09/17 19:51 04:03 Creatine Kinase CK-MB (CK-2) Troponin I NT-Pro-B Natriuret Pep 1070 H 1540 H EKG Comments: Continues to show atrial flutter. Impressions: Chest X-Ray 08/08/17 00:00 IMPRESSION: Bibasilar densities as noted above Assessment & Plan - Diagnosis (1) Atrial flutter with rapid ventricular response Is this a current diagnosis for this admission?: Yes (2) Congestive heart failure Qualifiers: Congestive heart failure type: combined Congestive heart failure chronicity : acute Qualified Code(s): I50.41 - Acute combined systolic (congestive) and diastolic (congestive) heart failure Is this a current diagnosis for this admission?: Yes (3) Diabetes mellitus Qualifiers: Diabetes mellitus type: type 2 Diabetes mellitus complication status: without complication Is this a current diagnosis for this admission?: Yes (4) Obstructive sleep apnea Is this a current diagnosis for this admission?: Yes (5) Pneumonia Qualifiers: Pneumonia type: due to Haemophilus influenzae Laterality: bilateral Is this a current diagnosis for this admission?: Yes - Notes Notes: Patient remains significantly cardiac in spite of our best effort. It is felt that patient will benefit from transesophageal echocardiogram with attempts to cardiovert or ablate patient. I was told later in the day that patient has been accepted in [facility]. Patient will benefit from EP consult. Earlier in the morning, patient was continued on amiodarone drip, metoprolol succinate, IV digoxin, Ranexa therapy. Patient also was continued on antibiotic therapy and also intermittent IV Lasix. Discussed that I will be happy to follow patient in my office following discharge from [facility] and institute CPAP therapy. Explained to the patient and his ex that CPAP therapy will reduce recurrence of atrial tachyarrhythmias. Overall approximately 45 minutes spent. I did talk with patient's EX, who is surrogate decision-maker currently. - Time Time with patient: Greater than 35 minutes - CODE STATUS was discussed, patient remains full code. Surrogate decision-maker unchanged. Multiple medical problems were addressed. More than 50% of the time spent coordinating care, discussing management plans with involved caregivers. Management plans discussed with involved personnels. Medical decision making was of moderate to high complexity, patient's has multiple comorbidities. Medications reviewed and adjusted accordingly: Yes
--- NOTE | 2017-08-11 15:08 | PDOC DISCHARGE SUMMARY ---
General - Admit/Disc Date/PCP Admission Date/Primary Care Provider: 08/07/17 16:26 DONNA HENRIQUEZ MD Discharge Date: 08/09/17 - Discharge Diagnosis (2) Tachycardia Is this a current diagnosis for this admission?: Yes (3) Congestive heart failure Is this a current diagnosis for this admission?: Yes (4) Diabetes mellitus Is this a current diagnosis for this admission?: Yes (5) Obstructive sleep apnea Is this a current diagnosis for this admission?: Yes (6) Attention deficit disorder Is this a current diagnosis for this admission?: Yes (7) Anxiety Is this a current diagnosis for this admission?: Yes (8) Obesity Is this a current diagnosis for this admission?: Yes - Additional Information Resuscitation Status: Full Code Discharge Diet: Cardiac, Diabetic Discharge Activity: Activity As Tolerated, Balance Activity w/Rest, Weigh Daily Home Medications: Metformin HCl 1 tab PO BID 03/05/16 Aspirin [Ecotrin 325 mg EC Tablet] 325 mg PO DAILY tabec 03/07/16 Dextroamphetamine/Amphetamine [Dextroamp-Amphetamin 20 mg Tab] 20 mg PO DAILY Insulin Glargine,Hum.rec.anlog [Lantus] 20 units SQ HSP PRN 08/07/17 Sildenafil Citrate [Viagra] 50 mg PO DAILY PRN 08/07/17 History of Present Illness History of Present Illness: EUFEMIA MC is a 57 year old white male with history of tachycardia since May who presents with SOB, heart failure and rapid A flutter. Details of the patient's admission can be found below as per the admitting physician. Admission Date/PCP: 08/07/17 16:26 DONNA HENRIQUEZ MD Patient complains of: Shortness of breath History of Present Illness: EUFEMIA MC is a 57 year old male with a history of diabetes and obesity who presents with a one-week history of shortness of breath. Patient reports over the last week to 10 days he has been feeling short of breath but over the last 2 days is gotten worse. He reports he has had a productive cough of some white sputum. Patient denies any chest pain but has had worsening dyspnea on exertion. He can only walk about 10 steps before becomes dyspneic. He also reports having orthopnea and PND but no lower extremity edema. The patient when he presented was noted to be tachycardic with heart rate of 150. While in the emergency room the patient received adenosine 6 mg, 6 mg, 12 mg with no change in his heart rate or rhythm. Patient then was put on diltiazem in the emergency room with no change in his rhythm. Patient was then given Lopressor IV 5 mg again with no change in the rhythm. The patient's EKG is suggestive of atrial flutter as the cause. The patient does have an elevated BNP consistent with acute congestive heart failure. This may be heart rate related and he does not have any cardiac history previously. The patient does report that he has gained some weight but denies any lower extremity edema. He has had distention in his abdomen. Patient does have obstructive sleep apnea but reports he has not used his CPAP in quite some time. Hospital Course Hospital Course: Patient was admitted to the hospital and was found to be tachycardic at 130. It is felt that he had sinus tachycardia. Ultimately he was diagnosed with Haemophilus influenza pneumonia a flutter intermittent with which could have led to some increase in his heart rate; however, the patient has had elevated heart rates in May when it was first noticed at his primary care physician's office. Here amiodarone, digoxin, Cardizem, metoprolol and esmolol drips were tried in order to get the patient's rate down and his rhythm converted. His rhythm did come down to 110 at rest but with any type of activity such as sitting up in his recliner the patient's heart rate went back up to 130. Cardiology did follow him and agreed that transferral to cardiology was in the patient's best interest. Echocardiogram was done which showed an EF of 35-40%. The patient was diuresed also while he was here for his heart failure and edema. Therefore I contacted Dr. Eugenio David over at [facility] as well as Dr. Niels Maldonado and Dr. Avila in the ICU. It is my opinion that the patient could likely go to [facility] level care. However, I did speak with the ICU in case there were any changes in route. Hopefully the patient can be successfully ablated or either cardioverted once there. Physical Exam Vital Signs: Temp Pulse Resp BP Pulse Ox 97.6 F 115 H 28 H 120/92 H 94 08/09/17 14:00 08/09/17 09:58 08/09/17 16:10 08/09/17 16:10 08/09/17 16:10 Intake & Output 08/09/17 08/10/17 08/11/17 06:59 06:59 06:59 Intake Total 3333 330 Output Total 3225 700 Balance 108 -370 Weight 120 kg GENERAL: This is a well-developed well-nourished obese white male resting in a recliner currently in no acute distress. HEART: Tachycardic at the bedside. No obvious murmurs rubs or gallops. LUNGS: Diminished at the bases bilaterally with equal rise and fall of the chest. He is resting on nasal cannula. ABDOMEN: firm, nontender. Less distention. Hypoactive bowel sounds. EXTREMETIES: No clubbing or cyanosis. The patient has trace edema on the right. Trace to 1+ on the left extending from the feet up into the shins. 1+ peripheral pulses. NEURO: Awake, alert and oriented 3. Cranial nerves II through XII are grossly intact. Results Laboratory Results: 08/09/17 04:03 08/09/17 04:03 08/07/17 08/07/17 08/07/17 17:37 17:37 23:14 Creatine Kinase 111 117 CK-MB (CK-2) 1.07 Troponin I < 0.012 NT-Pro-B Natriuret Pep 08/07/17 08/08/17 08/08/17 23:14 05:24 05:24 Creatine Kinase 80 CK-MB (CK-2) 1.07 0.95 Troponin I < 0.012 0.013 NT-Pro-B Natriuret Pep 08/08/17 08/09/17 19:51 04:03 Creatine Kinase CK-MB (CK-2) Troponin I NT-Pro-B Natriuret Pep 1070 H 1540 H Impressions: Chest X-Ray 08/08/17 00:00 IMPRESSION: Bibasilar densities as noted above Qualifiers PATEINT BEING DISCHARGED WITH ANY OF THE FOLLOWING DIAGNOSIS?: Heart Failure HF Pt being discharged on ACEI for LVEF less than 40%?: No Reason(s) for not prescribing ACEI:: Contraindicated - Patient blood pressure quite labile Reason(s) for not prescribing ARBS:: Contraindicated - Labile blood pressure HF Pt discharged on evidence-based Beta Jessica:: Yes Plan Time Spent: Greater than 30 Minutes - Patient is transferred to tertiary [facility]. Greater than 1 hour spent in coordination of care.
== END 2017-08-09 16:25 | disposition short-term general hospital (02) | DRG 308 ==
LOC: ER 11:28 → UNDOADMIN 16:26 → EH 16:26 → ICU 17:52
PROVIDERS: ADMIT Internal Medicine; ATTEND Internal Medicine
DX: I48.92 Unspecified atrial flutter (principal); J14 Pneumonia due to Hemophilus influenzae; I50.43 Acute on chronic combined systolic (congestive) and diastolic (congestive) heart failure; I11.0 Hypertensive heart disease with heart failure; E78.5 Hyperlipidemia, unspecified; F90.9 Attention-deficit hyperactivity disorder, unspecified type; F41.9 Anxiety disorder, unspecified; E66.9 Obesity, unspecified; G47.33 Obstructive sleep apnea (adult) (pediatric); Z68.38 Body mass index [BMI] 38.0-38.9, adult; Z79.4 Long term (current) use of insulin; Z86.73 Personal history of transient ischemic attack (TIA), and cerebral infarction without residual deficits
CPT/HCPCS: 36415; 71010; 71020; 80048; 80053; 80162; 80307; 81001; 82550; 82553; 82803; 82962; 83605; 83735; 83880; 84439; 84443; 84484; 85025; 87040; 87070; 87077; 87086; 87205; 93005; 93010; 93306; 94640; 94660; 96365; 96368; 96375; 96376; 99291; 99292; J0153; J0282; J0696; J1160; J1650; J1815; J1940; J3490; J7060; S0119

== ENCOUNTER → 2017-09-07 | Outpatient (CLI) | payer OTHER ==
[2017-09-07 13:38] LABS: ABSOLUTE BASOPHILS # (AUTO) 0.1 10^3/uL (0.0-0.2); ABSOLUTE EOSINOPHILS # (AUTO) 0.5 10^3/uL (0.0-0.6); ABSOLUTE LYMPHOCYTES (AUTO) 2.6 10^3/uL (0.5-4.7); ABSOLUTE MONOCYTES (AUTO) 0.6 10^3/uL (0.1-1.4); EOSINOPHILS % (AUTO) 5.3 % (0-6); HEMATOCRIT 49.3 % (37.9-51.0); HEMOGLOBIN 16.5 g/dL (13.5-17.0); HGB HCT DIFFERENCE 0.2; LYMPHOCYTES % (AUTO) 26.6 % (13-45); MEAN CORPUSCULAR HEMOGLOBIN 27.7 pg (27.0-33.4); MEAN CORPUSCULAR HGB CONC 33.5 g/dL (32.0-36.0); MEAN CORPUSCULAR VOLUME 83 fl (80-97); MONOCYTES % (AUTO) 5.7 % (3-13); RED BLOOD COUNT 5.96 10^6/uL (4.35-5.55); RED CELL DISTRIBUTION WIDTH 14.3 % (11.5-14.0); SEGMENTED NEUTROPHILS % (AUTO) 61.4 % (42-78); WHITE BLOOD COUNT 9.8 10^3/uL (4.0-10.5)
[2017-09-07 13:44] LABS: URINE BARBITURATES SCREEN NEGATIVE; URINE METHADONE SCREEN NEGATIVE; URINE OPIATES LOW NEGATIVE; URINE PHENCYCLIDINE SCREEN NEGATIVE
--- NOTE | 2017-09-07 13:50 | RADIOLOGY REPORT (SQ) ---
EXAM DESCRIPTION: CHEST PA/LATERAL COMPLETED DATE/TIME: 09/07/2017 12:24 pm REASON FOR STUDY: UNSPECIFIED BACTERIAL PNEUMONIA COMPARISON: 08/08/2017 EXAM PARAMETERS: NUMBER OF VIEWS: two views TECHNIQUE: Digital Frontal and Lateral radiographic views of the chest acquired. RADIATION DOSE: NA LIMITATIONS: none FINDINGS: LUNGS AND PLEURA: No infiltrate or effusion. No mass. There is complete clearing of the prior infiltrates. MEDIASTINUM AND HILAR STRUCTURES: No masses or contour abnormalities. HEART AND VASCULAR STRUCTURES: Heart normal size. No evidence for failure. BONES: No acute findings. HARDWARE: None in the chest. OTHER: No other significant finding. IMPRESSION: NO SIGNIFICANT RADIOGRAPHIC FINDING IN THE CHEST. TECHNICAL DOCUMENTATION: JOB ID: [id number] [employer]- All Rights Reserved
[2017-09-07 14:07] LABS: ANION GAP 15 (5-19); BLOOD UREA NITROGEN 19 mg/dL (7-20); CARBON DIOXIDE 27 mmol/L (22-30); CHLORIDE 96 mmol/L (98-107); CREATININE RESULT 0.75 mg/dL (0.52-1.25); GLUCOSE 117 mg/dL (75-110); MAGNESIUM 1.8 mg/dL (1.6-2.3); SODIUM 138.2 mmol/L (137-145)
== END ==
LOC: OD 12:00
PROVIDERS: ATTEND Family Medicine
DX: J15.9 Unspecified bacterial pneumonia (principal); E87.6 Hypokalemia; E11.65 Type 2 diabetes mellitus with hyperglycemia; Z79.01 Long term (current) use of anticoagulants
CPT/HCPCS: 36415; 71020; 80048; 80307; 83036; 83735; 85025

== ENCOUNTER → 2018-03-15 | Outpatient (CLI) | payer OTHER ==
[2018-03-15 10:21] LABS: ABSOLUTE BASOPHILS # (AUTO) 0.1 10^3/uL (0.0-0.2); ABSOLUTE EOSINOPHILS # (AUTO) 0.3 10^3/uL (0.0-0.6); ABSOLUTE LYMPHOCYTES (AUTO) 1.8 10^3/uL (0.5-4.7); ABSOLUTE MONOCYTES (AUTO) 0.4 10^3/uL (0.1-1.4); ABSOLUTE NEUT (AUTO) 5.6 10^3/uL (1.7-8.2); BASOPHILS % (AUTO) 0.7 % (0-2); EOSINOPHILS % (AUTO) 3.2 % (0-6); HEMATOCRIT 49.8 % (37.9-51.0); HEMOGLOBIN 17.1 g/dL (13.5-17.0); LYMPHOCYTES % (AUTO) 22.1 % (13-45); MEAN CORPUSCULAR HEMOGLOBIN 29.4 pg (27.0-33.4); MEAN CORPUSCULAR HGB CONC 34.4 g/dL (32.0-36.0); MEAN CORPUSCULAR VOLUME 85 fl (80-97); MONOCYTES % (AUTO) 4.8 % (3-13); PLATELET COUNT 217 10^3/uL (150-450); RED BLOOD COUNT 5.83 10^6/uL (4.35-5.55); RED CELL DISTRIBUTION WIDTH 13.5 % (11.5-14.0); SEGMENTED NEUTROPHILS % (AUTO) 69.2 % (42-78); TOTAL CELLS COUNTED % (AUTO) 100 %
[2018-03-15 10:52] LABS: ALANINE AMINOTRANSFERASE 34 U/L (21-72); ALBUMIN 4.4 g/dL (3.5-5.0); ALKALINE PHOSPHATASE 68 U/L (38-126); ANION GAP 13 (5-19); ASPARTATE AMINO TRANSFERASE 24 U/L (17-59); BILIRUBIN,DIRECT 0.4 mg/dL (0.0-0.4); BILIRUBIN,TOTAL 0.8 mg/dL (0.2-1.3); BLOOD UREA NITROGEN 17 mg/dL (7-20); CALCIUM 9.8 mg/dL (8.4-10.2); CARBON DIOXIDE 25 mmol/L (22-30); CHLORIDE 101 mmol/L (98-107); GLUCOSE 310 mg/dL (75-110); POTASSIUM 4.9 mmol/L (3.6-5.0); SODIUM 138.9 mmol/L (137-145); TOTAL PROTEIN 7.2 g/dL (6.3-8.2)
== END ==
LOC: OD 09:29
PROVIDERS: ATTEND Family Medicine
DX: I48.3 Typical atrial flutter (principal); E11.65 Type 2 diabetes mellitus with hyperglycemia; Z79.01 Long term (current) use of anticoagulants; Z79.899 Other long term (current) drug therapy
CPT/HCPCS: 36415; 80053; 83036; 84443; 85025

== ENCOUNTER → 2019-01-08 | Outpatient (CLI) | payer OTHER ==
[2019-01-08 14:07] LABS: ABSOLUTE BASOPHILS # (AUTO) 0.1 10^3/uL (0.0-0.2); ABSOLUTE EOSINOPHILS # (AUTO) 0.3 10^3/uL (0.0-0.6); ABSOLUTE LYMPHOCYTES (AUTO) 1.5 10^3/uL (0.5-4.7); ABSOLUTE MONOCYTES (AUTO) 0.4 10^3/uL (0.1-1.4); ABSOLUTE NEUT (AUTO) 5.1 10^3/uL (1.7-8.2); BASOPHILS % (AUTO) 0.9 % (0-2); EOSINOPHILS % (AUTO) 4.2 % (0-6); HEMATOCRIT 50.9 % (37.9-51.0); HEMOGLOBIN 17.7 g/dL (13.5-17.0); LYMPHOCYTES % (AUTO) 20.6 % (13-45); MEAN CORPUSCULAR HEMOGLOBIN 29.6 pg (27.0-33.4); MEAN CORPUSCULAR HGB CONC 34.7 g/dL (32.0-36.0); MEAN CORPUSCULAR VOLUME 85 fl (80-97); PLATELET COUNT 181 10^3/uL (150-450); RED BLOOD COUNT 5.98 10^6/uL (4.35-5.55); SEGMENTED NEUTROPHILS % (AUTO) 69.3 % (42-78); TOTAL CELLS COUNTED % (AUTO) 100 %; WHITE BLOOD COUNT 7.3 10^3/uL (4.0-10.5)
[2019-01-08 14:26] LABS: ALANINE AMINOTRANSFERASE 36 U/L (21-72); ALBUMIN 4.3 g/dL (3.5-5.0); ALKALINE PHOSPHATASE 76 U/L (38-126); ANION GAP 10 (5-19); ASPARTATE AMINO TRANSFERASE 24 U/L (17-59); BILIRUBIN,DIRECT 0.4 mg/dL (0.0-0.4); BILIRUBIN,TOTAL 0.9 mg/dL (0.2-1.3); BLOOD UREA NITROGEN 14 mg/dL (7-20); CALCIUM 9.4 mg/dL (8.4-10.2); CARBON DIOXIDE 23 mmol/L (22-30); CHLORIDE 104 mmol/L (98-107); CHOLESTEROL 237.16 mg/dL (0-200); GLUCOSE 152 mg/dL (75-110); POTASSIUM 4.3 mmol/L (3.6-5.0); SODIUM 137.1 mmol/L (137-145); TOTAL PROTEIN 7.2 g/dL (6.3-8.2); TRIGLYCERIDES 311 mg/dL (<150)
[2019-01-08 14:37] LABS: DIRECT LDL 173 mg/dL (<100)
[2019-01-08 14:42] LABS: VLDL CHOLESTEROL 62.2 mg/dL (10-31)
[2019-01-09 11:38] LABS: CREATININE URINE 66.4 mg/dL (Not Estab.); MICROALBUMIN URINE 7.7 ug/mL (Not Estab.)
== END ==
LOC: OD 12:33
PROVIDERS: ATTEND Family Medicine
DX: E11.65 Type 2 diabetes mellitus with hyperglycemia (principal); E78.2 Mixed hyperlipidemia; Z79.01 Long term (current) use of anticoagulants
CPT/HCPCS: 36415; 80053; 80061; 82043; 82570; 83036; 84402; 84403; 85025

== ENCOUNTER → 2019-04-08 | Outpatient (CLI) | payer OTHER ==
[2019-04-08 15:40] LABS: ALANINE AMINOTRANSFERASE 35 U/L (21-72); ALBUMIN 4.7 g/dL (3.5-5.0); ALKALINE PHOSPHATASE 62 U/L (38-126); ANION GAP 14 (5-19); ASPARTATE AMINO TRANSFERASE 26 U/L (17-59); BILIRUBIN,DIRECT 0.3 mg/dL (0.0-0.4); BLOOD UREA NITROGEN 19 mg/dL (7-20); CALCIUM 9.6 mg/dL (8.4-10.2); CARBON DIOXIDE 22 mmol/L (22-30); CHLORIDE 103 mmol/L (98-107); CREATINE KINASE 49 U/L (55-170); GLUCOSE 99 mg/dL (75-110); POTASSIUM 4.6 mmol/L (3.6-5.0); SODIUM 138.5 mmol/L (137-145); TOTAL PROTEIN 7.5 g/dL (6.3-8.2); TRIGLYCERIDES 101 mg/dL (<150)
[2019-04-08 15:52] LABS: DIRECT LDL 106 mg/dL (<100)
== END ==
LOC: OD 14:14
PROVIDERS: ATTEND Family Medicine
DX: E11.65 Type 2 diabetes mellitus with hyperglycemia (principal); E78.2 Mixed hyperlipidemia
CPT/HCPCS: 36415; 80048; 80061; 80076; 82550; 83036

== ENCOUNTER 2019-08-26 08:04 | Day surgery (SDC) | payer OTHER ==
[~2019-08-26 08:04] MED LIST: PROPOFOL INJ 200 MG/20 ML VIAL IV ONE
[2019-08-26] MEDS ORDERED: PROPOFOL INJ 200 MG/20 ML VIAL IV ONE (09:53)
[2019-08-26 10:44] VITALS: BP 123/76
--- NOTE | 2019-08-26 13:18 | Operative Report ---
Operative Report DATE OF SURGERY: 08/26/19 Operative Report: The risks, benefits and alternatives of the procedure including the risk of bleeding, perforation requiring surgery have been explained to the patient in detail and informed consent has been obtained. Patient is placed in a left, lateral decubital position. Timeout was called. Propofol medication is administered. Rectal examination is done which did not reveal any masses, tears or fissures. Prep was inadequate. The scope was then carefully advanced all the way to the cecum. The cecum was identified by the usual anatomical landmarks including the ileocecal valve as well as the appendiceal office. Photodocumentation is obtained. Scope was then sequentially pulled back via the rest segments of the colon including the ascending colon, hepatic flexure, transverse colon, splenic flexure, descending colon and into the rectosigmoid portions of the colon. Retroflexion maneuvers performed. PREOPERATIVE DIAGNOSIS: Colorectal cancer screening POSTOPERATIVE DIAGNOSIS: Ascending colon that was removed via snare polypectomy. 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 Internal hemorrhoids. Measures between 8 to 9 mm. OPERATION: Colonoscopy with snare polypectomy SURGEON: KEATON GUILLORY ANESTHESIA: LMAC TISSUE REMOVED OR ALTERED: As noted above. COMPLICATIONS: None. ESTIMATED BLOOD LOSS: None. INTRAOPERATIVE FINDINGS: As noted above. PROCEDURE: Patient tolerated the procedure well. No immediate postprocedure complications are noted. Patient is discharged in good condition. Discharge date 08/26/2019. Discharge diet: Regular. Discharge activity: Regular. 2 to 3-week follow-up to discuss findings. Patient is instructed to call the office or proceed to the emergency room should there be any further problems or questions. Will need 1 year surveillance colonoscopy due to inadequate prep
== END 2019-08-26 10:43 | disposition home or self-care (01) ==
LOC: END 08:04
PROVIDERS: ATTEND Internal Medicine Gastroenterology
DX: Z12.11 Encounter for screening for malignant neoplasm of colon (principal); D12.2 Benign neoplasm of ascending colon; K64.8 Other hemorrhoids; E11.9 Type 2 diabetes mellitus without complications; I49.9 Cardiac arrhythmia, unspecified; E66.9 Obesity, unspecified; I10 Essential (primary) hypertension; G47.33 Obstructive sleep apnea (adult) (pediatric); Z79.899 Other long term (current) drug therapy; Z79.01 Long term (current) use of anticoagulants
CPT/HCPCS: 45385; 82962; 00811; J2704; 811

== ENCOUNTER → 2019-12-27 | Outpatient (CLI) | payer OTHER ==
[2019-12-27 10:12] LABS: ABSOLUTE EOSINOPHILS # (AUTO) 0.2 10^3/uL (0.0-0.6); ABSOLUTE LYMPHOCYTES (AUTO) 1.7 10^3/uL (0.5-4.7); ABSOLUTE MONOCYTES (AUTO) 0.5 10^3/uL (0.1-1.4); ABSOLUTE NEUT (AUTO) 5.9 10^3/uL (1.7-8.2); BASOPHILS % (AUTO) 0.5 % (0-2); EOSINOPHILS % (AUTO) 2.8 % (0-6); HEMATOCRIT 48.4 % (37.9-51.0); HEMOGLOBIN 16.6 g/dL (13.5-17.0); LYMPHOCYTES % (AUTO) 20.5 % (13-45); MEAN CORPUSCULAR HEMOGLOBIN 29.3 pg (27.0-33.4); MEAN CORPUSCULAR HGB CONC 34.3 g/dL (32.0-36.0); MEAN CORPUSCULAR VOLUME 86 fl (80-97); MONOCYTES % (AUTO) 6.2 % (3-13); PLATELET COUNT 218 10^3/uL (150-450); RED BLOOD COUNT 5.65 10^6/uL (4.35-5.55); RED CELL DISTRIBUTION WIDTH 14.2 % (11.5-14.0); TOTAL CELLS COUNTED % (AUTO) 100 %; WHITE BLOOD COUNT 8.4 10^3/uL (4.0-10.5)
[2019-12-27 10:33] LABS: ALBUMIN 4.6 g/dL (3.5-5.0); ALKALINE PHOSPHATASE 66 U/L (38-126); ANION GAP 8 (5-19); ASPARTATE AMINO TRANSFERASE 27 U/L (17-59); BILIRUBIN,TOTAL 0.6 mg/dL (0.2-1.3); BLOOD UREA NITROGEN 23 mg/dL (7-20); CALCIUM 9.9 mg/dL (8.4-10.2); CARBON DIOXIDE 29 mmol/L (22-30); CHLORIDE 102 mmol/L (98-107); CHOLESTEROL 154.62 mg/dL (0-200); CREATINE KINASE 121 U/L (55-170); GLUCOSE 118 mg/dL (75-110); POTASSIUM 5.1 mmol/L (3.6-5.0); TOTAL PROTEIN 7.5 g/dL (6.3-8.2); TRIGLYCERIDES 168 mg/dL (<150)
[2019-12-27 10:44] LABS: DIRECT LDL 106 mg/dL (<100)
[2019-12-27 10:49] LABS: VLDL CHOLESTEROL 33.6 mg/dL (10-31)
== END ==
LOC: OD 09:28
PROVIDERS: ATTEND Family Medicine
DX: E11.65 Type 2 diabetes mellitus with hyperglycemia (principal); E78.2 Mixed hyperlipidemia; Z79.01 Long term (current) use of anticoagulants
CPT/HCPCS: 36415; 80053; 80061; 82550; 83036; 84443; 85025

== ENCOUNTER → 2020-06-26 | Outpatient (CLI) | payer OTHER ==
[2020-06-26 10:28] LABS: ABSOLUTE EOSINOPHILS # (AUTO) 0.2 10^3/uL (0.0-0.6); ABSOLUTE LYMPHOCYTES (AUTO) 1.3 10^3/uL (0.5-4.7); ABSOLUTE MONOCYTES (AUTO) 0.3 10^3/uL (0.1-1.4); ABSOLUTE NEUT (AUTO) 4.7 10^3/uL (1.7-8.2); BASOPHILS % (AUTO) 0.5 % (0-2); EOSINOPHILS % (AUTO) 3.1 % (0-6); HEMATOCRIT 46.4 % (37.9-51.0); HEMOGLOBIN 16.3 g/dL (13.5-17.0); LYMPHOCYTES % (AUTO) 19.6 % (13-45); MEAN CORPUSCULAR HEMOGLOBIN 30.3 pg (27.0-33.4); MEAN CORPUSCULAR VOLUME 86 fl (80-97); MONOCYTES % (AUTO) 5.1 % (3-13); PLATELET COUNT 174 10^3/uL (150-450); RED BLOOD COUNT 5.37 10^6/uL (4.35-5.55); RED CELL DISTRIBUTION WIDTH 13.8 % (11.5-14.0); SEGMENTED NEUTROPHILS % (AUTO) 71.7 % (42-78); TOTAL CELLS COUNTED % (AUTO) 100 %; WHITE BLOOD COUNT 6.5 10^3/uL (4.0-10.5)
[2020-06-26 11:17] LABS: ALBUMIN 4.4 g/dL (3.5-5.0); ALKALINE PHOSPHATASE 55 U/L (38-126); ANION GAP 13 (5-19); ASPARTATE AMINO TRANSFERASE 27 U/L (17-59); BILIRUBIN,DIRECT 0.4 mg/dL (0.0-0.4); BILIRUBIN,TOTAL 0.8 mg/dL (0.2-1.3); BLOOD UREA NITROGEN 19 mg/dL (7-20); CALCIUM 9.4 mg/dL (8.4-10.2); CARBON DIOXIDE 23 mmol/L (22-30); CHLORIDE 104 mmol/L (98-107); CHOLESTEROL 118.99 mg/dL (0-200); GLUCOSE 118 mg/dL (75-110); POTASSIUM 4.4 mmol/L (3.6-5.0); TRIGLYCERIDES 106 mg/dL (<150)
[2020-06-26 11:28] LABS: DIRECT LDL 71 mg/dL (<100)
[2020-06-27 18:36] LABS: MICROALBUMIN URINE 5.3 ug/mL (Not Estab.)
== END ==
LOC: OD 08:55
PROVIDERS: ATTEND Family Medicine
DX: E11.65 Type 2 diabetes mellitus with hyperglycemia (principal); Z12.5 Encounter for screening for malignant neoplasm of prostate; E78.2 Mixed hyperlipidemia; Z79.01 Long term (current) use of anticoagulants
CPT/HCPCS: 36415; 80053; 80061; 82043; 82570; 83036; 84153; 85025